=== PATIENT | male | born 1945 | race Caucasian/White ===

== ENCOUNTER 2018-09-20 08:09 | Emergency (ER) | payer MEDICARE ==
--- NOTE | 2018-09-20 08:44 | EDM.PDOC ---
ED HPI GENERAL MEDICAL PROBLEM - General Chief Complaint: General Stated Complaint: RIB PAIN Time Seen by Provider: 09/20/18 08:09 Source of Information: Reports: Patient, Family History Limitations: Reports: Physical Impairment - History of Present Illness INITIAL COMMENTS - FREE TEXT/NARRATIVE: 72 y.o.w.m came with is sister to the ED after he fell on ice onto his right post chest wall. Pt has right sided rip pain with deep inspiration. No N/V/D no dizziness no F/C no other acute medical issues. BP 151/70 RR 20 Pulse ox 92 % on RA Pulse 77 Temp 36.9 Onset Date: 09/20/18 Onset Time: 06:00 Duration: Hour(s):, Intermittent Location: Reports: Chest Quality: Reports: Ache Severity: Mild Improves with: Reports: Rest Worsens with: Reports: Movement Context: Reports: Trauma (fell on right post ribs) Associated Symptoms: Reports: No Other Symptoms L posterior ribs Pain Score (Numeric/FACES): 4 - Related Data Allergies Allergy/AdvReac Type Severity Reaction Status Date / Time No Known Allergies Allergy Verified 09/20/18 08:21 Home Meds: Home Meds Acetaminophen/HYDROcodone [[place] 325-7.5 MG] 1 - 2 tab PO Q6H PRN #16 tab [Rx] Albuterol Sulfate [Albuterol Sulfate Hfa] 2 puff IH Q4H PRN 09/20/18 [History] ED ROS GENERAL - Review of Systems Review Of Systems: See Below Constitutional: Reports: No Symptoms HEENT: Reports: No Symptoms Respiratory: Reports: No Symptoms Cardiovascular: Reports: No Symptoms Endocrine: Reports: No Symptoms GI/Abdominal: Reports: No Symptoms : Reports: No Symptoms Musculoskeletal: Reports: Muscle Pain (right post chest wall) Skin: Reports: No Symptoms Neurological: Reports: No Symptoms Psychiatric: Reports: No Symptoms Hematologic/Lymphatic: Reports: No Symptoms Immunologic: Reports: No Symptoms ED EXAM, GENERAL - Physical Exam Exam: See Below Exam Limited By: No Limitations General Appearance: Alert, WD/WN, Mild Distress Eye Exam: Bilateral Eye: Normal Inspection Ears: Normal External Exam Ear Exam: Bilateral Ear: Auricle Normal Nose: Normal Inspection, Normal Mucosa Throat/Mouth: Normal Lips, Normal Voice, No Airway Compromise Head: Atraumatic, Normocephalic Neck: Normal Inspection, Supple, Non-Tender, Full Range of Motion Respiratory/Chest: Lungs Clear, Normal Breath Sounds, Decreased Breath Sounds ( right lung due to pain) Cardiovascular: Normal Peripheral Pulses, Regular Rate, Rhythm, No Edema Peripheral Pulses: 2+: Brachial (R) GI/Abdominal: Normal Bowel Sounds, Soft, Non-Tender, No Organomegaly, Pelvis Stable (Male) Exam: Deferred Rectal (Males) Exam: Deferred Back Exam: Normal Inspection Extremities: Normal Inspection, Normal Range of Motion Neurological: Alert, Oriented, CN II-XII Intact, Normal Cognition Psychiatric: Normal Affect, Normal Mood Skin Exam: Warm, Dry, Intact, Normal Color, No Rash Lymphatic: No Adenopathy Course - Vital Signs Text/Narrative:: 72 y.o.w.m came with is sister to the ED after he fell on ice onto his right post chest wall. Pt has right sided rip pain with deep inspiration. No N/V/D no dizziness no F/C no other acute medical issues. BP 151/70 RR 20 Pulse ox 92 % on RA Pulse 77 Temp 36.9 PE: Thin 72 Y.O W male with right rip pain after fall on ICE Imaging: CXR and Right rib series: NAD as per RAD, no Fx seen Impression: Right rib sprain, fall on ICE Tx: Toradol, ICE.Noro sent home per prescription Reexam: Improved Plan: D/C with instructions Last Recorded V/S: Last Vital Signs Temp 36.9 C 09/20/18 08:09 Pulse 68 09/20/18 10:05 Resp 18 09/20/18 10:05 BP 139/78 09/20/18 10:05 Pulse Ox 95 09/20/18 10:05 - Orders/Labs/Meds Orders: Active Orders 24 hr Category Date Time Status Chest 2V [CR] Stat Exams 09/20/18 08:42 Taken Ribs 3V wo Chest Rt [CR] Stat Exams 09/20/18 08:42 Taken Meds: Medications Discontinued Medications Generic Name Dose Route Start Last Admin Trade Name Freq PRN Reason Stop Dose Admin Ketorolac Tromethamine 60 mg 09/20/18 08:42 09/20/18 09:20 Toradol IM 09/20/18 08:43 60 mg ONETIME ONE Administration Departure - Departure Time of Disposition: 10:06 Disposition: Home, Self-Care 01 Condition: Good Clinical Impression: Fall Sprain of chest wall Qualifiers: Encounter type: initial encounter Qualified Code(s): S23.8XXA - Sprain of other specified parts of thorax, initial encounter - Discharge Information Prescriptions: Acetaminophen/HYDROcodone [[place] 325-7.5 MG] 1 - 2 tab PO Q6H PRN #16 tab PRN Reason: for severe pain only Instructions: Ketorolac injection, Rib Contusion Referrals: Shiva Rae MD [Primary Care Provider] - Forms: ED Department Discharge Additional Instructions: Please apply ICE to the affected area for 20-30 minutes 4-6 times a day, Motrin/ [place] for pain as needed, please follow up with your regular MD at clinic for recheck as needed or if not improving, come back if your symptoms get worse acutely. - My Orders Last 24 Hours: My Active Orders 09/20/18 08:42 Chest 2V [CR] Stat Ribs 3V wo Chest Rt [CR] Stat - Assessment/Plan Last 24 Hours: My Active Orders 09/20/18 08:42 Chest 2V [CR] Stat Ribs 3V wo Chest Rt [CR] Stat
[2018-09-20] MEDS: Ketorolac 60 MG/2 ML SDV IM ONE (09:20)
== END 2018-09-20 10:30 | disposition home or self-care (01) ==
LOC: FB.ED 08:09
DX: S23.41XA Sprain of ribs, initial encounter (principal); W19.XXXA Unspecified fall, initial encounter; Y93.29 Activity, other involving ice and snow
CPT/HCPCS: 71046; 71101-RT; 96372; 99283; J1885

== ENCOUNTER 2021-01-03 14:17 | Emergency (ER) | payer MEDICARE ==
[2021-01-03] MEDS ORDERED: Ondansetron 4 MG/2 ML SDV IVPUSH ONE (14:48)
--- NOTE | 2021-01-03 14:54 | EDM.PDOC ---
ED HPI GENERAL MEDICAL PROBLEM - General Stated Complaint: ??? Time Seen by Provider: 01/03/21 14:25 Source of Information: Reports: Patient, Family History Limitations: Reports: No Limitations - History of Present Illness INITIAL COMMENTS - FREE TEXT/NARRATIVE: c/o LLQ pain here with his nephew who lives with him LLQ pain x 1w, saw Dr Garcia 3d ago, begun on cipro 500 bid and metronidazole 500 mg tid which he has been taking however, he had n/v 2d ago that has not improved, very little PO, pain now gone in LLQ denies f/c/d h/o diverticulitis x 2, 3y ago with long section of sigmoid diverticulitis with a 2.3 cm probable abscess, BPH, cholelithiasis, ASD however pt denies prior abd surgery, not hospitalized with last 2 episodes of diverticulitis SH: drinks daily, usually 3-4 beers sometimes more, regular THC, 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, 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, here with nephew who spoke with RN and myself then returned home, pt brought a suitcase with him ROS: very weak - Related Data Allergies Allergy/AdvReac Type Severity Reaction Status Date / Time No Known Allergies Allergy Verified 09/20/18 08:21 Home Meds: Home Meds Ciprofloxacin HCl [Cipro] 500 mg PO BID 01/03/21 [History] metroNIDAZOLE [Flagyl] 500 mg PO TID 01/03/21 [History] Past Medical History Respiratory History: Reports: COPD Gastrointestinal History: Reports: None, Diverticulosis Musculoskeletal History: Reports: Fracture Other Musculoskeletal History: hx fx L arm, hand, Psychiatric History: Reports: Addiction - Infectious Disease History Infectious Disease History: Reports: Chicken Pox, Measles, Mumps - Past Surgical History HEENT Surgical History: Reports: Adenoidectomy, Tonsillectomy Musculoskeletal Surgical History: Reports: None Social & Family History - Family History Family Medical History: No Pertinent Family History - Caffeine Use Caffeine Use: Reports: Coffee ED ROS GENERAL - Review of Systems Review Of Systems: See Below Constitutional: Reports: No Symptoms HEENT: Reports: No Symptoms Respiratory: Reports: No Symptoms Cardiovascular: Reports: No Symptoms Endocrine: Reports: No Symptoms GI/Abdominal: Reports: Abdominal Pain, Nausea, Vomiting, Other (last BM several days ago) : Reports: No Symptoms Musculoskeletal: Reports: No Symptoms Skin: Reports: No Symptoms Neurological: Reports: No Symptoms Psychiatric: Reports: No Symptoms Hematologic/Lymphatic: Reports: No Symptoms Immunologic: Reports: No Symptoms ED EXAM, GI/ABD - Physical Exam Exam: See Below Exam Limited By: No Limitations General Appearance: Alert, WD/WN, Other (pleasant, weak, no tremor, lying supine on bed) Ears: Hearing Grossly Normal Nose: Normal Inspection Throat/Mouth: Normal Inspection, Normal Voice, No Airway Compromise Head: Atraumatic Neck: Normal Inspection, Supple, Non-Tender, Full Range of Motion. No: Lymphadenopathy (R) Respiratory/Chest: No Respiratory Distress, Lungs Clear, Normal Breath Sounds, Chest Non-Tender Cardiovascular: Regular Rate, Rhythm, No Edema, No Gallop, No Murmur GI/Abdominal Exam: Normal Bowel Sounds, Soft, No Distention, Other (1-2+ tender localized 10 cm above inguinal ligament in mid iguinal line in LLQ). No: Distended, Guarding, Rigid, Rebound, Hernia Back Exam: Normal Inspection, Full Range of Motion. No: CVA Tenderness (R), CVA Tenderness (L) Extremities: Normal Inspection, Non-Tender, No Pedal Edema Neurological: Alert, Oriented, CN II-XII Intact, Normal Cognition, No Motor/Sensory Deficits Psychiatric: Normal Affect Skin Exam: Warm, Dry, Intact, Normal Color, No Rash Lymphatic: No Adenopathy Course - Vital Signs Last Recorded V/S: Last Vital Signs Temp 36.4 C 01/03/21 14:26 Pulse 79 01/03/21 16:31 Resp 20 01/03/21 16:31 BP 168/69 H 01/03/21 16:31 Pulse Ox 97 01/03/21 16:31 - Orders/Labs/Meds Orders: Active Orders 24 hr Category Date Time Status Abdomen Pelvis w Cont [CT] Stat Exams 01/03/21 14:46 Ordered CULTURE BLOOD [BC] Urgent Lab 01/03/21 16:59 Ordered CULTURE BLOOD [BC] Urgent Lab 01/03/21 16:59 Ordered Piperacillin/Tazobactam [Zosyn] 3.375 gm Med 01/03/21 17:00 Ordered Sodium Chloride 0.9% [Normal Saline] 50 ml IV NOW Sodium Chloride 0.9% [Normal Saline] 1,000 ml Med 01/03/21 15:00 Active IV ASDIRECTED Blood Culture x2 Reflex Set [OM.PC] Urgent Oth 01/03/21 16:59 Ordered Medication Orders Sodium Chloride (Normal Saline) 1,000 mls @ 999 mls/hr IV ASDIRECTED TOÑO Last Admin: 01/03/21 15:20 Dose: 999 mls/hr Documented by: CHANTEL Piperacillin Sod/Tazobactam (Sod 3.375 gm/ Sodium Chloride) 50 mls @ 100 mls/hr IV NOW ONE Stop: 01/03/21 17:29 Labs: Laboratory Tests 01/03/21 01/03/21 01/03/21 Range/Units 14:55 14:55 14:55 WBC 10.8 H (3.2-10.1) x10-3/uL RBC 5.62 (3.90-5.90) x10(6)uL Hgb 17.6 (12.9-17.7) g/dL Hct 52.8 H (38.3-50.1) % MCV 94.1 (80.8-98.7) fL MCH 31.4 (27.0-33.3) pg MCHC 33.4 (28.7-35.3) g/dL RDW 14.9 (12.4-15.0) % Plt Count 265 (117-477) x10(3)uL MPV 8.6 (6.7-11.0) fL Neut % (Auto) 76.9 H (40.3-71.8) % Lymph % (Auto) 13.7 L (15.8-45.3) % [place] % (Auto) 7.9 (5.5-15.2) % Eos % (Auto) 0.7 (0.1-6.8) % Baso % (Auto) 0.8 (0.3-3.8) % Neut # (Auto) 8.3 H (1.7-6.9) x10-3/uL Lymph # (Auto) 1.5 (0.5-4.5) x10-3/uL [place] # (Auto) 0.9 (0.0-1.2) x10-3/uL Eos # (Auto) 0.1 (0.0-0.6) x10-3/uL Baso # (Auto) 0.1 (0.0-0.3) x10-3/uL Sodium 141 (135-145) mmol/L Potassium 3.3 L (3.5-5.3) mmol/L Chloride 103 (100-110) mmol/L Carbon Dioxide 31 (21-32) mmol/L BUN 14 (7-18) mg/dL Creatinine 1.1 (0.70-1.30) mg/dL Est Cr Clr Drug Dosing TNP Estimated GFR (MDRD) > 60 (>60) BUN/Creatinine Ratio 12.7 (9-20) Glucose 198 H (80-116) mg/dL Lactic Acid (0.4-2.0) mmol/L Calcium 8.6 (8.6-10.2) mg/dL Total Bilirubin 0.3 (0.1-1.3) mg/dL AST 13 (5-25) IU/L ALT 16 (12-36) U/L Alkaline Phosphatase 125 H (56-112) IU/L C-Reactive Protein 4.1 H* (0.5-0.9) mg/dL Total Protein 6.9 (6.0-8.0) g/dL Albumin 3.1 L (3.2-4.6) g/dL Globulin 3.8 g/dL Albumin/Globulin Ratio 0.8 Urine Color (YELLOW) Urine Appearance (CLEAR) Urine pH (5.0-6.5) Ur Specific [place] (1.010-1.025) Urine Protein (NEGATIVE) mg/dL Urine Glucose (UA) (NORMAL) mg/dL Urine Ketones (NEGATIVE) mg/dL Urine Occult Blood (NEGATIVE) Urine Nitrite (NEGATIVE) Urine Bilirubin (NEGATIVE) Urine Urobilinogen (NEGATIVE) mg/dL Ur Leukocyte Esterase (NEGATIVE) U Hyaline Cast (Auto) (NS) Urine RBC (0-5) Urine WBC (0-5) Ur Squamous Epith Cells (NS,R,O) Urine Bacteria (NS) Urine Mucus (NS) 01/03/21 01/03/21 Range/Units 14:55 16:00 WBC (3.2-10.1) x10-3/uL RBC (3.90-5.90) x10(6)uL Hgb (12.9-17.7) g/dL Hct (38.3-50.1) % MCV (80.8-98.7) fL MCH (27.0-33.3) pg MCHC (28.7-35.3) g/dL RDW (12.4-15.0) % Plt Count (117-477) x10(3)uL MPV (6.7-11.0) fL Neut % (Auto) (40.3-71.8) % Lymph % (Auto) (15.8-45.3) % [place] % (Auto) (5.5-15.2) % Eos % (Auto) (0.1-6.8) % Baso % (Auto) (0.3-3.8) % Neut # (Auto) (1.7-6.9) x10-3/uL Lymph # (Auto) (0.5-4.5) x10-3/uL [place] # (Auto) (0.0-1.2) x10-3/uL Eos # (Auto) (0.0-0.6) x10-3/uL Baso # (Auto) (0.0-0.3) x10-3/uL Sodium (135-145) mmol/L Potassium (3.5-5.3) mmol/L Chloride (100-110) mmol/L Carbon Dioxide (21-32) mmol/L BUN (7-18) mg/dL Creatinine (0.70-1.30) mg/dL Est Cr Clr Drug Dosing Estimated GFR (MDRD) (>60) BUN/Creatinine Ratio (9-20) Glucose (80-116) mg/dL Lactic Acid 2.1 H* (0.4-2.0) mmol/L Calcium (8.6-10.2) mg/dL Total Bilirubin (0.1-1.3) mg/dL AST (5-25) IU/L ALT (12-36) U/L Alkaline Phosphatase (56-112) IU/L C-Reactive Protein (0.5-0.9) mg/dL Total Protein (6.0-8.0) g/dL Albumin (3.2-4.6) g/dL Globulin g/dL Albumin/Globulin Ratio Urine Color Brown (YELLOW) Urine Appearance Slightly cloudy (CLEAR) Urine pH 6.0 (5.0-6.5) Ur Specific [place] 1.020 (1.010-1.025) Urine Protein Trace (NEGATIVE) mg/dL Urine Glucose (UA) Normal (NORMAL) mg/dL Urine Ketones 15 H (NEGATIVE) mg/dL Urine Occult Blood Negative (NEGATIVE) Urine Nitrite Negative (NEGATIVE) Urine Bilirubin Negative (NEGATIVE) Urine Urobilinogen 4 H (NEGATIVE) mg/dL Ur Leukocyte Esterase Small H (NEGATIVE) U Hyaline Cast (Auto) Few H (NS) Urine RBC 0-5 (0-5) Urine WBC 0-5 (0-5) Ur Squamous Epith Cells Few H (NS,R,O) Urine Bacteria Few H (NS) Urine Mucus Few H (NS) Meds: Medications Generic Name Dose Route Start Last Admin Trade Name Freq PRN Reason Stop Dose Admin Sodium Chloride 1,000 mls @ 999 mls/hr 01/03/21 15:00 01/03/21 15:20 Normal Saline IV 999 mls/hr ASDIRECTED TOÑO Administration Piperacillin Sod/Tazobactam 50 mls @ 100 mls/hr 01/03/21 17:00 Sod 3.375 gm/ Sodium Chloride IV 01/03/21 17:29 NOW ONE Discontinued Medications Generic Name Dose Route Start Last Admin Trade Name Freq PRN Reason Stop Dose Admin Iopamidol 66 ml 01/03/21 15:32 01/03/21 15:48 Iopamidol 755 Mg/Ml 75 Ml Bottle IV 01/03/21 15:33 66 ml ONETIME ONE Administration Ondansetron HCl 4 mg 01/03/21 14:48 01/03/21 15:18 Ondansetron 4 Mg/2 Ml Sdv IVPUSH 01/03/21 14:49 4 mg ONETIME ONE Administration - Re-Assessments/Exams Free Text/Narrative Re-Assessment/Exam: 01/03/21 17:04 d/w Dr Caraballo, [facility] hospitalist, who accepted pt in transfer pt has a 2.6 cm abscess with adjacent 10 cm of inflamed sigmoid colon c/w d iverticulitis 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 to 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, pt will need surgical consult and possible surgery for recurrent diverticulitis and abscess in presumably the same stretch of sigmo id colon as he had 3y ago Departure - Departure Time of Disposition: 17:04 Disposition: DC/Tfer to Acute Hospital 02 Condition: Fair Clinical Impression: Diverticulitis of intestine with abscess, Hypoalbuminemia, Dehydration, Daily consumption of alcohol, Hyperglycemia, Hypokalemia - Discharge Information Sepsis Event Note (ED) - Focused Exam Vital Signs: Vital Signs Temp Pulse Resp BP Pulse Ox 01/03/21 16:31 79 20 168/69 H 97 01/03/21 16:01 74 20 182/87 H 94 L 01/03/21 15:56 78 20 196/91 H 97 01/03/21 14:26 36.4 C 95 18 145/106 H 95 - My Orders Last 24 Hours: My Active Orders 01/03/21 14:46 Abdomen Pelvis w Cont [CT] Stat 01/03/21 15:00 Sodium Chloride 0.9% [Normal Saline] 1,000 ml IV ASDIRECTED 01/03/21 16:59 CULTURE BLOOD [BC] Urgent CULTURE BLOOD [BC] Urgent Blood Culture x2 Reflex Set [OM.PC] Urgent 01/03/21 17:00 Piperacillin/Tazobactam [Zosyn] 3.375 gm Sodium Chloride 0.9% [Normal Saline] 50 ml IV NOW - Assessment/Plan Last 24 Hours: My Active Orders 01/03/21 14:46 Abdomen Pelvis w Cont [CT] Stat 01/03/21 15:00 Sodium Chloride 0.9% [Normal Saline] 1,000 ml IV ASDIRECTED 01/03/21 16:59 CULTURE BLOOD [BC] Urgent CULTURE BLOOD [BC] Urgent Blood Culture x2 Reflex Set [OM.PC] Urgent 01/03/21 17:00 Piperacillin/Tazobactam [Zosyn] 3.375 gm Sodium Chloride 0.9% [Normal Saline] 50 ml IV NOW
[2021-01-03] MEDS ORDERED: Sodium Chloride 0.9% 1,000 ML IV SCH (15:00)
[2021-01-03] MEDS ORDERED: Iopamidol 755 Mg/ML 75 ML Bottle IV ONE (15:32)
[2021-01-03] MEDS ORDERED: Piperacillin/Tazobactam 3.375 GM in Sodium Chloride 0.9% 50 ML IV ONE (17:00)
[2021-01-03] MEDS ORDERED: Potassium Chloride 20 MEQ Tab.ER PO ONE (17:03)
== END 2021-01-03 18:41 ==
LOC: FB.ED 14:17
DX: K57.20 Diverticulitis of large intestine with perforation and abscess without bleeding (principal); E86.0 Dehydration; E88.09 Other disorders of plasma-protein metabolism, not elsewhere classified; E87.6 Hypokalemia; R73.9 Hyperglycemia, unspecified; J44.9 Chronic obstructive pulmonary disease, unspecified
CPT/HCPCS: 36415; 74177; 80053; 81001; 83605; 85025; 86140; 87040; 96374; 96375; 99285-25; A9270-GY; J2405; J2543; J7030; Q9967

== ENCOUNTER 2021-01-13 16:21 | Emergency (ER) | payer MEDICARE ==
[2021-01-13] MEDS: Meclizine 25 MG Tab PO ONE (16:43)
--- NOTE | 2021-01-13 18:38 | EDM.PDOC ---
ED HPI GENERAL MEDICAL PROBLEM - General Chief Complaint: General Stated Complaint: Vertigo Time Seen by Provider: 01/13/21 16:30 Source of Information: Reports: Patient History Limitations: Reports: No Limitations - History of Present Illness INITIAL COMMENTS - FREE TEXT/NARRATIVE: Patient presented to the ED because of vertigo for 2 weeks. He described it as floating sensation with associated tinnitus, double vision, bilateral UE and LE weakness and at times he lost his balance. He also c/o perioral numbness and according to his sister there was a time when he had the vertigo and his sister was talking to him and he is not able to respond for 15 minutes. - Related Data Allergies Allergy/AdvReac Type Severity Reaction Status Date / Time No Known Allergies Allergy Verified 09/20/18 08:21 Home Meds: Home Meds Ciprofloxacin HCl [Cipro] 500 mg PO BID 01/03/21 [History] metroNIDAZOLE [Flagyl] 500 mg PO TID 01/03/21 [History] Meclizine [Antivert] 25 mg PO Q6H PRN #30 tab 01/13/21 [Rx] Past Medical History Respiratory History: Reports: COPD Gastrointestinal History: Reports: Diverticulosis Musculoskeletal History: Reports: Fracture Other Musculoskeletal History: hx fx L arm, hand, Psychiatric History: Reports: Addiction - Infectious Disease History Infectious Disease History: Reports: Chicken Pox, Measles, Mumps - Past Surgical History HEENT Surgical History: Reports: Adenoidectomy, Tonsillectomy Musculoskeletal Surgical History: Reports: None Social & Family History - Family History Family Medical History: No Pertinent Family History - Tobacco Use Tobacco Use Status *Q: Current Every Day Tobacco User Years of Tobacco use: 50 Packs/Tins Daily: 0.1 - Caffeine Use Caffeine Use: Reports: Coffee - Recreational Drug Use Recreational Drug Use: Yes Recreational Drug Type: Reports: Marijuana/Hashish Recreational Drug Use Frequency: Weekly ED ROS GENERAL - Review of Systems Review Of Systems: See Below Constitutional: Reports: No Symptoms HEENT: Reports: No Symptoms Respiratory: Reports: No Symptoms Cardiovascular: Reports: No Symptoms Endocrine: Reports: No Symptoms GI/Abdominal: Reports: No Symptoms : Reports: No Symptoms Musculoskeletal: Reports: Shoulder Pain, Back Pain Skin: Reports: No Symptoms Neurological: Reports: No Symptoms ED EXAM, GENERAL - Physical Exam Exam: See Below Exam Limited By: No Limitations General Appearance: Alert, No Apparent Distress Ears: Normal External Exam, Normal [place] Nose: Normal Inspection, Normal Mucosa, No Blood Throat/Mouth: Normal Inspection, Normal Lips, Normal Teeth Head: Atraumatic, Normocephalic Neck: Normal Inspection, Supple, Non-Tender, Full Range of Motion Respiratory/Chest: No Respiratory Distress, Lungs Clear, Normal Breath Sounds Cardiovascular: Normal Peripheral Pulses, Regular Rate, Rhythm, No Edema, No Gallop GI/Abdominal: Normal Bowel Sounds, Soft, Non-Tender, No Organomegaly Extremities: Normal Inspection, Normal Range of Motion, Non-Tender Neurological: Alert, Oriented, CN II-XII Intact, Normal Cognition, Normal Gait, Normal Reflexes, No Motor/Sensory Deficits Course - Vital Signs Text/Narrative:: Lab/CT result was reviewed and discussed with patient and his sister Meclizine 25 mg PO x1 Neurostroke consult with Dr Dc who recommended MRI of the prain and EEG as an outpatient and will follow up with neurology accordingly NIHSS=0 Last Recorded V/S: Last Vital Signs Temp 35.9 C L 01/13/21 16:23 Pulse 89 01/13/21 19:30 Resp 18 01/13/21 19:30 BP 137/74 01/13/21 19:30 Pulse Ox 94 L 01/13/21 19:30 - Orders/Labs/Meds Orders: Active Orders 24 hr Category Date Time Status Chest 1V Frontal [CR] Stat Exams 01/13/21 17:04 Taken EKG 12 Lead [EK] Routine Ther 01/13/21 16:37 Ordered Labs: Laboratory Tests 01/13/21 01/13/21 01/13/21 Range/Units 16:44 16:44 16:44 WBC 11.2 H (3.2-10.1) x10-3/uL RBC 5.36 (3.90-5.90) x10(6)uL Hgb 16.6 (12.9-17.7) g/dL Hct 50.5 H (38.3-50.1) % MCV 94.2 (80.8-98.7) fL MCH 30.9 (27.0-33.3) pg MCHC 32.8 (28.7-35.3) g/dL RDW 15.1 H (12.4-15.0) % Plt Count 292 (117-477) x10(3)uL MPV 7.7 (6.7-11.0) fL Neut % (Auto) 63.6 (40.3-71.8) % Lymph % (Auto) 25.6 (15.8-45.3) % [place] % (Auto) 7.5 (5.5-15.2) % Eos % (Auto) 2.2 (0.1-6.8) % Baso % (Auto) 1.1 (0.3-3.8) % Neut # (Auto) 7.1 H (1.7-6.9) x10-3/uL Lymph # (Auto) 2.9 (0.5-4.5) x10-3/uL [place] # (Auto) 0.8 (0.0-1.2) x10-3/uL Eos # (Auto) 0.2 (0.0-0.6) x10-3/uL Baso # (Auto) 0.1 (0.0-0.3) x10-3/uL PT 10.0 (9.0-11.1) sec INR 0.93 L (1.00-1.24) APTT 25.8 (24.4-33.2) SECONDS Sodium Cancelled Potassium Cancelled Chloride Cancelled Carbon Dioxide Cancelled Anion Gap Cancelled BUN Cancelled Creatinine Cancelled Est Cr Clr Drug Dosing Cancelled Estimated GFR (MDRD) Cancelled BUN/Creatinine Ratio Cancelled Glucose Cancelled Calcium Cancelled Total Bilirubin (0.1-1.3) mg/dL AST (5-25) IU/L ALT (12-36) U/L Alkaline Phosphatase (56-112) IU/L Troponin I (4.0-60.3) pg/mL Total Protein (6.0-8.0) g/dL Albumin (3.2-4.6) g/dL Globulin g/dL Albumin/Globulin Ratio 01/13/21 01/13/21 Range/Units 16:44 16:44 WBC (3.2-10.1) x10-3/uL RBC (3.90-5.90) x10(6)uL Hgb (12.9-17.7) g/dL Hct (38.3-50.1) % MCV (80.8-98.7) fL MCH (27.0-33.3) pg MCHC (28.7-35.3) g/dL RDW (12.4-15.0) % Plt Count (117-477) x10(3)uL MPV (6.7-11.0) fL Neut % (Auto) (40.3-71.8) % Lymph % (Auto) (15.8-45.3) % [place] % (Auto) (5.5-15.2) % Eos % (Auto) (0.1-6.8) % Baso % (Auto) (0.3-3.8) % Neut # (Auto) (1.7-6.9) x10-3/uL Lymph # (Auto) (0.5-4.5) x10-3/uL [place] # (Auto) (0.0-1.2) x10-3/uL Eos # (Auto) (0.0-0.6) x10-3/uL Baso # (Auto) (0.0-0.3) x10-3/uL PT (9.0-11.1) sec INR (1.00-1.24) APTT (24.4-33.2) SECONDS Sodium 142 Potassium 4.4 D Chloride 105 Carbon Dioxide 31 Anion Gap BUN 18 Creatinine 1.2 Est Cr Clr Drug Dosing 42.21 Estimated GFR (MDRD) 59 L BUN/Creatinine Ratio 15.0 Glucose 98 D Calcium 8.3 L Total Bilirubin 0.3 (0.1-1.3) mg/dL AST 17 D (5-25) IU/L ALT 21 D (12-36) U/L Alkaline Phosphatase 118 H (56-112) IU/L Troponin I 12.2 (4.0-60.3) pg/mL Total Protein 7.1 (6.0-8.0) g/dL Albumin 3.4 (3.2-4.6) g/dL Globulin 3.7 g/dL Albumin/Globulin Ratio 0.9 Meds: Medications Discontinued Medications Generic Name Dose Route Start Last Admin Trade Name Freq PRN Reason Stop Dose Admin Meclizine HCl 25 mg 01/13/21 16:36 01/13/21 16:43 Meclizine 25 Mg Tab PO 01/13/21 16:37 25 mg ONETIME ONE Administration Departure - Departure Time of Disposition: 18:45 Disposition: Home, Self-Care 01 Condition: Good Clinical Impression: Vertigo - Discharge Information Prescriptions: Meclizine [Antivert] 25 mg PO Q6H PRN #30 tab PRN Reason: vertigo Instructions: Vertigo, [id number] Referrals: Shiva Rae MD [Primary Care Provider] - Forms: ED Department Discharge Additional Instructions: Please read discharge instructions on Vertigo Meclizine 25 mg every 6 hours as needed for vertigo 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
--- NOTE | 2021-01-13 18:42 | CT ---
INDICATION: Vertigo, weakness, aphasia. TECHNIQUE: Spiral 3.75 mm axial sections were obtained through the brain without contrast with axial, sagittal and coronal reconstructions 01/13/2021 - no comparisons. TOTAL EXAM DLP: 1223.52 mGy/cm. No shift in midline structures or ventricular abnormalities were identified. A small low density abnormality is noted in the medial right basal ganglia, which may represent a small lacunar infarct. There is also suggestion of one small low density abnormality in the white matter along the superior aspect of the parietal lobe white matter on the right which may be on the basis of microvascular disease, although other etiology cannot be excluded. No cranial abnormality was identified. The paranasal sinuses and mastoid air cells appear to be fairly well aerated. There appears to be some mild asymmetry of the internal auditory canals most likely within normal limits. However, if symptoms are related to the right internal auditory canal which is very slightly more prominent than the left, further workup such as MRI may be warranted. The pollack/white matter interface appeared normal. IMPRESSION: 1. No definite acute intracranial abnormality. 2. Possible lacunar infarct of small size right basal ganglia. 3. Minimal white matter changes, which could be on the basis of microvascular disease. 4. Very minimal asymmetry in the internal auditory canals - right slightly more prominent than the left - correlate clinically as to the need for additional workup such as MRI. Report was called to Dr. Dee at 1807 hours 01/13/2021. [facility]OSPITALHellen
--- NOTE | 2021-01-14 09:44 | PCM.EKG ---
#1 Interpretation EKG Date: 01/13/21 Time: 16:28 Rhythm: Other (Sinus arrhythmia) Rate (Beats/Min): 76 Mckinney: Normal P-Wave: Present QRS: Normal ST-T: Normal QT: Normal Comparison: NA - No Prior EKG EKG Interpretation Comments: Sinus arrythmia PVC's LVH
--- NOTE | 2021-01-14 10:44 | CR ---
INDICATION: Vertigo, weakness, aphasia. CHEST ONE VIEW: An AP upright portable view of the chest 01/13/21 was compared with 09/20/18 and again revealed calcification in the arch of the aorta. The heart is normal in size and shape as previously. A moderate dextroconvex scoliosis at the upper middle thoracic spine is again noted. Pulmonary markings are similar to the previous study, without a definite active infiltrate or effusion. There is apparent resolution of a tiny right pleural effusion seen on the previous study. Healed rib fracture is noted on the right posterolaterally at the eighth right rib with suggestion of a ninth rib fracture site that is also healed but less obvious. A more obvious healed fracture site is more posteriorly located at the tenth right rib. These fractures were apparently present on the previous rib x- rays of 09/20/18. IMPRESSION: 1. ASD. 2. Scoliosis. 3. Healed rib fractures on the right posteriorly. MTDD
== END 2021-01-13 19:35 | disposition home or self-care (01) ==
LOC: FB.ED 16:21
DX: R42 Dizziness and giddiness (principal); J44.9 Chronic obstructive pulmonary disease, unspecified; Z72.0 Tobacco use
CPT/HCPCS: 36415; 70450; 71045; 80053; 84484; 85025; 85610; 85730; 93005; 99284; A9270

== ENCOUNTER 2021-04-08 13:54 | Inpatient (IN) | payer MEDICARE ==
[2021-04-08] MEDS ORDERED: Albuterol/Ipratropium 3.0-0.5 MG/3 ML Neb Soln INH PRN (14:31)
[2021-04-08] MEDS ORDERED: metroNIDAZOLE/Normal Saline 500 MG in Premix Bag 1 BAG IV SCH (15:00)
[2021-04-08] MEDS: Sodium Chloride 0.9% 1,000 ML IV SCH (15:22)
[2021-04-08] MEDS: Sodium Chloride 0.9% 10 ML Syringe FLUSH PRN (15:23)
[2021-04-08] MEDS ORDERED: Iopamidol 755 Mg/ML 75 ML Bottle IV ONE (16:18)
[2021-04-08] MEDS ORDERED: Diatrizoate Meglumine/Diatrizoate Sodium 37% 30 ML Bottle PO ONE (16:18)
[2021-04-08] MEDS: Ciprofloxacin in D5W 400 MG in Premix Bag 1 BAG IV SCH ×4 (16:31→23:48)
[2021-04-08] MEDS: Enoxaparin 30 MG/0.3 ML Syringe SUBCUT SCH (16:34)
[2021-04-08] MEDS: metroNIDAZOLE/Normal Saline 500 MG in Premix Bag 1 BAG IV SCH (17:56)
[2021-04-08] MEDS: Ticagrelor 90 MG Tab PO SCH (22:06)
[2021-04-08] MEDS ORDERED: Melatonin 3 MG Tab PO PRN (22:08)
[2021-04-09] MEDS: metroNIDAZOLE/Normal Saline 500 MG in Premix Bag 1 BAG IV SCH ×3 (00:57→17:07)
[2021-04-09] MEDS: Morphine 2 MG/ML SYRINGE IVPUSH PRN ×2 (00:58→04:40)
[2021-04-09] MEDS: Sodium Chloride 0.9% 1,000 ML IV SCH ×3 (04:14→23:55)
[2021-04-09] MEDS: Ciprofloxacin in D5W 400 MG in Premix Bag 1 BAG IV SCH ×2 (08:51)
[2021-04-09] MEDS: Ticagrelor 90 MG Tab PO SCH ×2 (09:03→20:49)
[2021-04-09] MEDS: Citalopram 20 MG Tab PO SCH (09:03)
[2021-04-09] MEDS: Sodium Chloride 0.9% 10 ML Syringe FLUSH PRN ×2 (10:00→20:38)
[2021-04-09] MEDS: HYDROmorphone 2 MG/ML SDV IVPUSH PRN ×2 (10:04→20:37)
--- NOTE | 2021-04-09 14:30 | HP ---
ADMISSION DATE: 04/08/2021 REASON FOR VISIT: Acute abdominal pain, suspect diverticulitis. HISTORY OF PRESENT ILLNESS: Flip Hirsch is a 75-year-old male, admitted after being seen by Dr. Rae at [facility]. Presented with 3-day history of increasing left lower abdominal pain. Denies fever, chills, sweats, or systemic complaints. Sense of reduced well-being, reluctant stools, and increasing pain. By report, did have a colonoscopy in March 2021, was hospitalized in December 2020 with same acute diverticulitis. Pain, discomfort, and well being. Dictated intervention and care. Suspect diverticulitis. MEDICATIONS: Daily medications include: 1. Albuterol 1-2 puffs q.i.d. p.r.n. 2. Baby aspirin 81 mg. 3. Atorvastatin 80 mg 1 p.o. daily, CAD prevention. 4. Melatonin 10 mg at bedtime, sleep enhancement. 5. Senokot 1 p.o. at bedtime, stool function. 6. Citalopram 20 mg 1 p.o. daily, mood stabilizer. 7. Brilinta 90 mg b.i.d., stroke prevention. PAST MEDICAL HISTORY: Significant for no major operative procedure other than a stent "put in arteries brain." Had a CVA, TIA with balance and speech impairment. He has had a fractured left humerus in his grade school. No other operative procedures, hospitalizations, unusual childhood diseases, major injuries, or fractures. SOCIAL HISTORY: , 1 son, 2 daughters. One grandchild. 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 One plus pack per day, quit December 2020. History of alcohol abuse, none at present. No illicit drug use. FAMILY HISTORY: Negative for early heart disease, diabetes mellitus, or inheritable cancer. REVIEW OF SYSTEMS: CONSTITUTIONAL: Generally feeling well. EYES: Sees well. EARS: Hears well, difficulty in crowds. OROPHARYNX: Poor dentition. CV: No chest pain. RESPIRATORY: Chronic cough, shortness of breath, exertion. GI: Please see HPI. : Voiding comfortably. No blood in urine. SKIN: No lesions, eruptions, or moles. ENDOCRINE: No excessive thirst or urination. ORTHOPEDIC: Generalized complaints, mood stable on citalopram. PHYSICAL EXAMINATION: VITAL SIGNS: Stable. CONSTITUTIONAL: Young man, cooperative, conversant, appears his stated age. Markedly bearded. HEENT: Funduscopic benign. Conjunctivae clear. Bright tympanic membranes. Clear nasal discharge. Mouth and oropharynx clear. NECK: Benign. Thyroid small. CHEST: On auscultation, clear lung. Decreased breath sounds. HEART: Distant heart sounds. ABDOMEN: Problematic. Acutely tender over the distal, descending, and proximal sigmoid colon with rebound. Good bowel sounds. : Normal male genitalia. Testes descended. Hernias absent. RECTAL: Declined and deferred. EXTREMITIES: Well perfused. NEUROMUSCULAR: Skin was intact. LABORATORY STUDIES: White count 10,900, hemoglobin 9.5, hematocrit 28.9. Electrolytes pending. CT scan performed revealed acute diverticular mass, abscess formation, now 4.4 x 2.3 cm, had been 3 x 1.9 in December 2020. No other pathology. ASSESSMENT: Acute diverticulitis. PLAN: IV metronidazole, IV ciprofloxacin. Complementary care and well being. Bowel rest. We will continue citalopram and Brilinta. Consultation will be obtained, Dr. Pablo for completeness of care. /[id number] VINICIO/CARLEE
--- NOTE | 2021-04-09 14:30 | PN ---
DATE SEEN: 04/09/2021 SUBJECTIVE: Flip Hirsch is a 75-year-old male admitted with left lower quadrant pain, strong suspicion for diverticulitis, and an evolving abscess change from December 2020. Had a pretty good night. Pain not controlled with morphine. Little in the way of appetite, ice chips on board. Laboratory studies noted. OBJECTIVE: HEENT: Unremarkable. NECK: Supple. Thyroid small. CHEST: Clear in all lung lee. HEART: No ectopy. ABDOMEN: Unchanged. Little tender in left lower quadrant. ASSESSMENT: Acute diverticulitis. PLAN: Continue IV ciprofloxacin, IV metronidazole. Complementary care and well being. Consult Dr. Shashi Pablo plan. Change medications accordingly. /[id number] VINICIO/CARLEE
[2021-04-09] MEDS ORDERED: Nicotine 14 MG/24 Hr Patch TRDERM SCH (15:30)
[2021-04-09] MEDS: Enoxaparin 30 MG/0.3 ML Syringe SUBCUT SCH (17:05)
[2021-04-09] MEDS: Ciprofloxacin in D5W 200 ML IV SCH (20:55)
[2021-04-10] MEDS: metroNIDAZOLE/Normal Saline 500 MG in Premix Bag 1 BAG IV SCH ×2 (00:51→09:36)
[2021-04-10] MEDS: HYDROmorphone 2 MG/ML SDV IVPUSH PRN ×2 (05:16→10:18)
[2021-04-10] MEDS: Sodium Chloride 0.9% 10 ML Syringe FLUSH PRN (05:21)
[2021-04-10] MEDS: Ciprofloxacin in D5W 200 ML IV SCH (08:47)
[2021-04-10] MEDS: Ticagrelor 90 MG Tab PO SCH (08:50)
[2021-04-10] MEDS: Citalopram 20 MG Tab PO SCH (08:50)
[2021-04-10] MEDS: Sodium Chloride 0.9% 1,000 ML IV SCH (09:36)
--- NOTE | 2021-04-10 12:29 | PCM.DCSUM1 ---
Discharge Summary - Hospital Course HPI Initial Comments: Presented from clinic with 3 day history of Left lower quadrant pain, increasing pain, suspected diverticulitis. No fevers, chills, night sweats. No respiratory symptoms. He had been transferred from ER to [facility] in December 2020 for diverticulitis with 3.0 x 1.9 cm abscess for surgical consult. Patient reports that no drainage was done when he was up there. He had colonoscopy with Dr Stephens in March 2021: showed duodenitis, multiple benign polyps. Repeat CT 04/08 showed abscess increased in size to 4.0 x 2.3 cm, moderate edema/wall inflammation in area of abscess which was unchanged from December 2020 CT. Diagnosis: Stroke: No - Discharge Data Discharge Date: 04/10/21 Discharge Disposition: DC/Tfer to Acute Hospital 02 Condition: Stable - Referral to Home Health Primary Care Physician: Shiva Rae MD - Discharge Diagnosis/Problem(s) (1) Diverticulitis of intestine with abscess SNOMED Code(s): 794816826, [id number] ICD Code: K57.80 - DVTRCLI OF INTEST, PART UNSP, W PERF AND ABSCESS W/O BLEED Status: Acute Qualifiers: Diverticulitis site: large intestine - Patient Summary/Data Consults: Consultations 04/09/21 09:16 Consult to Physician [CONS] Routine Consulting Provider: Charles Pablo Courtesy Call Completed to Consulting Physician: Yes Reason for Consult: asif pain and diverticular mass abscess Person Notified: lenny Date Notified: 04/09/21 Time Notified: 08:30 Hospital Course: CBC 10.9, Hgb 9.5, Electrolytes were unremarkable except total protein low at 5.8, Albumin 2.4. Lactic acid 0.5. CT abdomen/pelvis showed persistent vs recurrent sigmoid colon abscess measuring 4.0 cm x 2.3 cm, increased from 12/2020 CT with adjacent moderate wall edema/inflammation which was unchanged from 12/2020. He was started on Flagyl and Ciprofloxacin on admission, NS at 125 ml/hr. Dr Pablo was consulted on 04/09 and not able to drain abscess here given location. Dr Juarez attempted transfer 04/09 but no bed availability, called today and spoke with Dr Vargas surgery research professional, he accepted patient in transfer and will be consulting IR if able to do image guided percutaneous drainage. He required 2 doses of Morphine 2 mg and 4 doses of Dilaudid 2 mg to control his pain. Will go by ground ambulance to [facility] for higher level of care and drainage of abscess. - Patient Instructions Diet: NPO Activity: As Tolerated Other/Special Instructions: Transfer to [facility] for Interventional radiology/surgrical drainage of abscess. - Discharge Plan *PRESCRIPTION DRUG MONITORING PROGRAM REVIEWED*: Not Applicable *COPY OF PRESCRIPTION DRUG MONITORING REPORT IN PATIENT MARGO: Not Applicable Home Medications: Home Meds Albuterol [Ventolin HFA] 1 - 2 puff IH Q4H PRN 04/08/21 [History] Aspirin [Halfprin] 81 mg PO DAILY 04/08/21 [History] Citalopram [Citalopram HBr] 20 mg PO DAILY 04/08/21 [History] Melatonin 10 mg PO BEDTIME 04/08/21 [History] Sennosides [Senokotxtra] 17.2 mg PO BEDTIME 04/08/21 [History] Ticagrelor [Brilinta] 90 mg PO BID 04/08/21 [History] atorvaSTATin [Lipitor] 80 mg PO DAILY 04/08/21 [History] ondansetron HCL [Zofran] 4 mg PO QID PRN 04/08/21 [History] Albuterol/Ipratropium [DuoNeb 3.0-0.5 MG/3 ML] 3 ml INH Q4H PRN neb 04/10/21 [Rx] Ciprofloxacin in D5W [Ciprofloxacin-D5W] 200 ml IV Q12H bag 04/10/21 [Rx] Enoxaparin [Lovenox] 30 mg SUBCUT Q24H syringe 04/10/21 [Rx] HYDROmorphone [Dilaudid] 2 mg IVPUSH Q2H PRN sdv 04/10/21 [Rx] Sodium Chloride 0.9% [Saline Flush] 10 ml FLUSH ASDIRECTED PRN syringe 04/10/21 [Rx] metroNIDAZOLE/Normal Saline [Flagyl in NS 500 MG/100 ML] 500 mg IV Q8H bag 04/10/21 [Rx] Oxygen Therapy Mode: Room Air Patient Handouts: Diverticulitis, [id number] - Discharge Summary/Plan Comment DC Time >30 min.: No Total # of Minutes for Discharge Time: 15 min - General Info Date of Service: 04/10/21 Subjective Update: Flip states abdominal pain is controlled, passing gas but no stools. Denies any fevers, cough, shortness of breath. Functional Status: Reports: Pain Controlled. Denies: New Symptoms - Patient Data Vitals - Most Recent: Last Vital Signs Temp 98.1 F 04/10/21 11:49 Pulse 77 04/10/21 11:49 Resp 20 04/10/21 11:49 BP 148/61 H 04/10/21 11:49 Pulse Ox 94 L 04/10/21 11:49 Weight - Most Recent: 133 lb 6 oz I&O - Last 24 hours: Intake & Output 04/09/21 04/10/21 04/10/21 22:59 06:59 14:59 Intake Total 798 897 Output Total 350 280 Balance 448 617 Med Orders - Current: Current Medications Discontinued Medications Albuterol/Ipratropium (Albuterol/Ipratropium 3.0-0.5 Mg/3 Ml Neb Soln) 3 ml INH Q4H PRN PRN Reason: Shortness Of Breath/wheezing Citalopram Hydrobromide (Citalopram 20 Mg Tab) 20 mg PO DAILY [facility] Last Admin: 04/10/21 08:50 Dose: 20 mg Documented by: Diatrizoate Meglum/Diatrizoate Sod (Diatrizoate Meglumine/Diatrizoate Sodium 37% 30 Ml Bottle) 30 ml PO . DIRECTED ONE Stop: 04/08/21 16:19 Last Admin: 04/08/21 17:18 Dose: 30 ml Documented by: Enoxaparin Sodium (Enoxaparin 30 Mg/0.3 Ml Syringe) 30 mg SUBCUT Q24H [facility] Last Admin: 04/09/21 17:05 Dose: 30 mg Documented by: Hydromorphone HCl (Hydromorphone 2 Mg/Ml Sdv) 2 mg IVPUSH Q2H PRN PRN Reason: Abdominal Pain Last Admin: 04/10/21 10:18 Dose: 2 mg Documented by: Sodium Chloride (Normal Saline) 1,000 mls @ 125 mls/hr IV ASDIRECTED [facility] Last Admin: 04/10/21 09:36 Dose: 125 mls/hr Documented by: Ciprofloxacin/Dextrose 400 mg/ (Premix) 200 mls @ 200 mls/hr IV Q8H [facility] Last Admin: 04/09/21 08:51 Dose: 200 mls/hr Documented by: Metronidazole 500 mg/ Premix 100 mls @ 100 mls/hr IV Q8H [facility] Metronidazole 500 mg/ Premix 100 mls @ 100 mls/hr IV Q8H [facility] Last Admin: 04/10/21 09:36 Dose: 100 mls/hr Documented by: Ciprofloxacin/Dextrose (Cipro In D5w 400 Mg/200 Ml) 200 mls @ 200 mls/hr IV Q12H [facility] Last Admin: 04/10/21 08:47 Dose: 200 mls/hr Documented by: Iopamidol (Iopamidol 755 Mg/Ml 75 Ml Bottle) 75 ml IV ONETIME ONE Stop: 04/08/21 16:19 Last Admin: 04/08/21 17:18 Dose: 67 ml Documented by: Melatonin (Melatonin 3 Mg Tab) 9 mg PO BEDTIME PRN PRN Reason: Insomnia Last Admin: 04/08/21 22:19 Dose: 9 mg Documented by: Morphine Sulfate (Morphine 2 Mg/Ml Syringe) 2 mg IVPUSH Q2H PRN PRN Reason: Pain (severe 7-10) Last Admin: 04/09/21 04:40 Dose: 2 mg Documented by: Nicotine (Nicotine 14 Mg/24 Hr Patch) 14 mg TRDERM DAILY [facility] Sodium Chloride (Sodium Chloride 0.9% 10 Ml Syringe) 10 ml FLUSH ASDIRECTED PRN PRN Reason: Keep Vein Open Last Admin: 04/10/21 05:21 Dose: 10 ml Documented by: Ticagrelor (Ticagrelor 90 Mg Tab) 90 mg PO BID [facility] Last Admin: 04/10/21 08:50 Dose: 90 mg Documented by: - Exam General: Reports: Alert, Oriented, Cooperative Lungs: Reports: Clear to Auscultation, Normal Respiratory Effort Cardiovascular: Reports: Regular Rate, Regular Rhythm GI/Abdominal Exam: Normal Bowel Sounds, Soft, No Distention, Guarding, Tender (LLQ) (Male) Exam: Deferred Rectal (Males) Exam: Deferred Extremities: No Pedal Edema, Normal Capillary Refill Skin: Reports: Warm, Dry, Intact
--- NOTE | 2021-04-10 13:30 | CONS ---
DATE OF CONSULTATION: 04/09/2021 HISTORY: This 75-year-old gentleman is seen in consultation from Dr. Juarez for abdominal pain and abnormal CT scan. The patient was admitted yesterday with a 3-day history of increasing left lower abdominal pain. He had a history of diverticulitis with an abscess in December, which responded to antibiotics. He did have a stroke in the interim. He had a colonoscopy on April [address] Stephens at [facility] in [place] and had several polyps removed. He also had an upper endoscopy performed because of anemia and was found to have some inflammation in the duodenum and stomach. The patient presented to the clinic yesterday with worsening abdominal pain again and admitted to the hospital. CT scan was obtained which shows enlargement of the abscess in the left lower quadrant, now measuring 4.0 x 2.3 cm. I have reviewed these images. Images were reviewed by Interventional Radiology and this is not amenable to percutaneous drainage. The patient's labs are reviewed. White blood cell count is mildly elevated at 10.9. Other labs are within normal limits other than his hemoglobin remaining low at 9.5. He is malnourished with an albumin of 2.4. PHYSICAL EXAMINATION: GENERAL: Reveals a pleasant gentleman in no acute distress. He is resting comfortably in bed. VITAL SIGNS: Reviewed and he has been afebrile. ABDOMEN: He has been passing small amounts of flatus. His abdomen is soft throughout. There is some lower abdominal tenderness, but no peritoneal signs. No masses or hernias are seen. ASSESSMENT: Diverticular abscess. PLAN: The patient will continue his IV antibiotics. This will likely need surgical removal. He is stable tonight and will look to transfer to [facility] tomorrow for further intervention. /[id number] TORITO/CARLEE
== END 2021-04-10 12:10 | DRG 392 ==
LOC: FB.MS 14:11
PROVIDERS: ADMIT Family Medicine; ATTEND Family Medicine
DX: K57.20 Diverticulitis of large intestine with perforation and abscess without bleeding (principal); Z79.82 Long term (current) use of aspirin; Z79.899 Other long term (current) drug therapy; Z86.73 Personal history of transient ischemic attack (TIA), and cerebral infarction without residual deficits
CPT/HCPCS: 36415; 74177; 80053; 83605; 85025; A9270-GY; J0744; J1170; J1650; J2270; J3490; J7030; Q9963; Q9967

== ENCOUNTER 2021-04-14 09:03 | Inpatient (IN) | payer MEDICAID, MEDICARE ==
[2021-04-14] MEDS ORDERED: Acetaminophen 325 MG Tab PO PRN (13:53)
[2021-04-14] MEDS ORDERED: Albuterol 8 GM Inhaler INH PRN (13:53)
[2021-04-14] MEDS ORDERED: Ondansetron 4 MG Tab.DIS PO PRN (14:02)
[2021-04-14] MEDS: metroNIDAZOLE 500 MG Tab PO SCH ×2 (14:12→22:01)
[2021-04-14] MEDS: Sodium Chloride 0.9% 10 ML Syringe FLUSH PRN (14:16)
[2021-04-14] MEDS: cefTRIAXone 2 GM Vial IVPUSH SCH (14:16)
--- NOTE | 2021-04-14 15:55 | PCM.HP.2 ---
H&P History of Present Illness - General Date of Service: 04/14/21 Admit Problem/Dx: Admission Diagnosis/Problem Admission Diagnosis/Problem Abscess Source of Information: Patient, Old Records, Provider History Limitations: Reports: No Limitations - History of Present Illness Initial Comments - Free Text/Narative: Flip returns to [place] from [facility] for IV antibiotics and therapy after being transferred to on 04/10 for colonic abscess secondary to diverticulitis. He was evaluated by IR and surgery which was not amenable to IR drainage. He is to have repeat CT abdomen/pelvis in 4-6 weeks and referral to colorectal surgery. He was able to drive prior to hospitalization and has been weak due to infection, once he mets therapy goals and able to drive he can be discharged and continue IV Rocephin under outpatient services. He is to be on IV Rocephin 2 g daily and Flagyl 500 mg po q8h until May 25. Infectious Disease have requested weekly labs until complete course. - Related Data Allergies/Adverse Reactions: Allergies Allergy/AdvReac Type Severity Reaction Status Date / Time No Known Allergies Allergy Verified 04/14/21 14:06 Home Medications: Home Meds Albuterol [Ventolin HFA] 1 - 2 puff IH Q4H PRN 04/08/21 [History] Aspirin [Halfprin] 81 mg PO DAILY 04/08/21 [History] Citalopram [Citalopram HBr] 20 mg PO DAILY 04/08/21 [History] Melatonin 10 mg PO BEDTIME 04/08/21 [History] Sennosides [Senokotxtra] 17.2 mg PO BEDTIME 04/08/21 [History] Ticagrelor [Brilinta] 90 mg PO BID 04/08/21 [History] ondansetron HCL [Zofran] 4 mg PO QID PRN 04/08/21 [History] Sodium Chloride 0.9% [Saline Flush] 10 ml FLUSH ASDIRECTED PRN syringe 04/10/21 [Rx] Acetaminophen [Tylenol] 650 mg PO Q4H PRN 04/14/21 [History] Heparin Sodium,Porcine/PF [Heparin IV Flush 100 Units/ml] 300 units FLUSH ASDIRECTED 04/14/21 [History] atorvaSTATin [Lipitor] 80 mg PO BEDTIME 04/14/21 [History] cefTRIAXone [Rocephin] 2 gm IVPUSH Q24H 04/14/21 [History] metroNIDAZOLE [Flagyl] 500 mg PO Q8H 04/14/21 [History] oxyCODONE 5 mg PO Q4H PRN 04/14/21 [History] Past Medical History HEENT History: Reports: Impaired Vision Cardiovascular History: Reports: Other (See Below) Other Cardiovascular History: stroke Respiratory History: Reports: COPD Gastrointestinal History: Reports: Diverticulosis Musculoskeletal History: Reports: Fracture Other Musculoskeletal History: hx fx L arm, hand, Psychiatric History: Reports: Addiction - Infectious Disease History Infectious Disease History: Reports: Chicken Pox, Measles, Mumps - Past Surgical History HEENT Surgical History: Reports: Adenoidectomy, Tonsillectomy Musculoskeletal Surgical History: Reports: None Social & Family History - Family History Family Medical History: No Pertinent Family History - Tobacco Use Tobacco Use Status *Q: Former Tobacco User Used Tobacco, but Quit: Yes Month/Year Tobacco Last Used: 11/2020 - Caffeine Use Caffeine Use: Reports: Coffee H&P Review of Systems - Review of Systems: Review Of Systems: See Below General: Reports: No Symptoms HEENT: Reports: No Symptoms Pulmonary: Reports: No Symptoms Cardiovascular: Reports: No Symptoms Gastrointestinal: Reports: No Symptoms Genitourinary: Reports: No Symptoms Musculoskeletal: Reports: No Symptoms Skin: Reports: No Symptoms Psychiatric: Reports: No Symptoms Exam - Exam Exam: See Below - Vital Signs Vital Signs: Last Vital Signs Temp 98.0 F 04/14/21 13:02 Pulse 65 04/14/21 13:02 Resp 18 04/14/21 13:02 BP 137/53 L 04/14/21 13:02 Pulse Ox 98 04/14/21 13:02 Weight: 128 lb 11.2 oz - Exam General: Alert, Oriented, Cooperative HEENT: PERRLA, EOMI, Hearing Intact, Mucosa Moist & Miner Lungs: Clear to Auscultation, Normal Respiratory Effort Cardiovascular: Regular Rate, Regular Rhythm GI/Abdominal Exam: Normal Bowel Sounds, Soft, Non-Tender, No Distention Extremities: No Pedal Edema, Normal Capillary Refill, Pallor Peripheral Pulses: 2+: Radial (L), Radial (R), Posterior Tibial (L), Posterior Tibial (R), Dorsalis Pedis (L), Dorsalis Pedis (R) Skin: Warm, Dry, Intact Sepsis Event Note - Evaluation Sepsis Screening Result: No Definite Risk - Focused Exam Vital Signs: Vital Signs Temp Pulse Resp BP Pulse Ox 04/14/21 13:02 98.0 F 65 18 137/53 L 98 *Q Meaningful Use (ADM) - VTE *Q VTE Mechanical Contraindications *Q: At Risk for Falls - Problem List (1) Diverticulitis of intestine with abscess SNOMED Code(s): 493796725, 8282912737810 ICD Code: K57.80 - DVTRCLI OF INTEST, PART UNSP, W PERF AND ABSCESS W/O BLEED Status: Acute Current Visit: No Qualifiers: Diverticulitis site: large intestine (2) Weakness SNOMED Code(s): 32939830 ICD Code: R53.1 - WEAKNESS Status: Acute Current Visit: Yes (3) Dizziness SNOMED Code(s): 702658449, 334647259 ICD Code: R42 - DIZZINESS AND GIDDINESS Status: Chronic Current Visit: Yes (4) History of cerebellar stroke SNOMED Code(s): 213668536580180 ICD Code: Z86.73 - PRSNL HX OF TIA (TIA), AND CEREB INFRC W/O RESID DEFICITS Status: Chronic Current Visit: Yes Problem List Initiated/Reviewed/Updated: Yes Orders Last 24hrs: Active Orders 24 hr Category Date Time Status Patient Status [ADT] Routine ADT 04/14/21 13:48 Active Height and Weight [RC] .TUE 06 Care 04/14/21 13:48 Active Oxygen Therapy [RC] .PRN Care 04/14/21 13:48 Active RT Post Treatment Assessment [RC] Click to Edit Care 04/14/21 13:56 Active VTE/DVT Education [RC] 08 Care 04/14/21 13:48 Active Vital Signs [RC] 08 Care 04/14/21 13:48 Active OT Evaluation and Treatment [CONS] Routine Cons 04/14/21 13:50 Active PT Evaluation and Treatment [CONS] Routine Cons 04/14/21 13:50 Active Regular Diet [DIET] Diet 04/14/21 Lunch Active Acetaminophen [TylenoL] Med 04/14/21 13:53 Active 650 mg PO Q4H PRN Albuterol [Ventolin HFA] Med 04/14/21 13:53 Active 0 gm INH Q4H PRN Aspirin [Halfprin] Med 04/15/21 09:00 Active 81 mg PO DAILY Citalopram [Celexa] Med 04/15/21 09:00 Active 20 mg PO DAILY Heparin Sodium [Heparin Lock Flush 100 Units/ML] Med 04/14/21 14:00 Active 300 units FLUSH ASDIRECTED PRN Heparin Sodium [Heparin Lock Flush 100 Units/ML] Med 04/14/21 14:15 Active 300 units FLUSH Q24H Melatonin Med 04/14/21 21:00 Active 9 mg PO BEDTIME Ondansetron [Zofran ODT] Med 04/14/21 14:02 Active 4 mg PO QID PRN Sennosides [Senna] Med 04/14/21 21:00 Active 17.2 mg PO BEDTIME Sodium Chloride 0.9% [Saline Flush] Med 04/14/21 13:56 Active 10 ml FLUSH ASDIRECTED PRN Ticagrelor [Brilinta] Med 04/14/21 21:00 Active 90 mg PO BID atorvaSTATin [Lipitor] Med 04/14/21 21:00 Active 80 mg PO BEDTIME cefTRIAXone [Rocephin] Med 04/14/21 14:00 Active 2 gm IVPUSH Q24H metroNIDAZOLE [Flagyl] Med 04/14/21 14:00 Active 500 mg PO Q8H Antiembolic Hose [OM.PC] Per Unit Routine Oth 04/14/21 13:50 Ordered Resuscitation Status Routine Resus Stat 04/14/21 13:48 Ordered Medication Orders Acetaminophen (Acetaminophen 325 Mg Tab) 650 mg PO Q4H PRN PRN Reason: moderate pain Albuterol (Albuterol 8 Gm Inhaler) 0 gm INH Q4H PRN PRN Reason: Shortness of Breath Aspirin (Aspirin 81 Mg Tab.Ec) 81 mg PO DAILY TOÑO Atorvastatin Calcium (Atorvastatin 40 Mg Tab) 80 mg PO BEDTIME TOÑO Ceftriaxone Sodium (Ceftriaxone 2 Gm Vial) 2 gm IVPUSH Q24H TOÑO Stop: 05/25/21 23:55 Last Admin: 04/14/21 14:16 Dose: 2 gm Documented by: KALLIE Citalopram Hydrobromide (Citalopram 20 Mg Tab) 20 mg PO DAILY TOÑO Heparin Sodium (Porcine) (Heparin Sodium 100 Units/Ml 5 Ml Syringe) 300 units FLUSH ASDIRECTED PRN PRN Reason: PATENCY Heparin Sodium (Porcine) (Heparin Sodium 100 Units/Ml 5 Ml Syringe) 300 units FLUSH Q24H TOÑO Last Admin: 04/14/21 14:25 Dose: 300 units Documented by: KALLIE Melatonin (Melatonin 3 Mg Tab) 9 mg PO BEDTIME TOÑO Metronidazole (Metronidazole 500 Mg Tab) 500 mg PO Q8H [facility] Stop: 05/25/21 23:55 Last Admin: 04/14/21 14:12 Dose: 500 mg Documented by: KALLIE Ondansetron HCl (Ondansetron 4 Mg Tab.Dis) 4 mg PO QID PRN PRN Reason: Nausea Senna (Sennosides 8.6 Mg Tab) 17.2 mg PO BEDTIME TOÑO Sodium Chloride (Sodium Chloride 0.9% 10 Ml Syringe) 10 ml FLUSH ASDIRECTED PRN PRN Reason: Keep Vein Open Last Admin: 04/14/21 14:16 Dose: 10 ml Documented by: KALLIE Ticagrelor (Ticagrelor 90 Mg Tab) 90 mg PO BID [facility] Assessment/Plan Comment:: 1. Admit to swing bed for rehab services and IV antibiotics. 2. Colonic abscess with diverticulitis: Rocephin 2 g IV q24h, Flagyl 500 mg po q8h until May 25. Weekly labs sent to ID: CBC with diff, CR, ALT, ESR, CRP. PICC line was placed 04/13. Heparin & saline flush per protocol. He has not used oxycodone for pain for past 3 days and states he does not need anything for pain so will not restart on swing bed admission. 3. Weakness: PT/OT evaluation & treat. 4. Continue home medications. 5. Diet: regular. 6. Activity: up to chair and with assistance, advance per PT/OT. 7. CODE STATUS: DNR, yes to intubation. 8. Discharge planning: anticipate discharge once meets therapy goals then would come in for outpatient IV Rocephin until he completes course 05/25/21. - Mortality Measure Prognosis:: Good
[2021-04-14] MEDS: atorvaSTATin 40 MG Tab PO SCH (21:12)
[2021-04-14] MEDS: Sennosides 8.6 MG Tab PO SCH (21:12)
[2021-04-14] MEDS: Ticagrelor 90 MG Tab PO SCH (21:12)
[2021-04-14] MEDS: Melatonin 3 MG Tab PO SCH (21:12)
[2021-04-15] MEDS: metroNIDAZOLE 500 MG Tab PO SCH ×3 (06:18→21:50)
[2021-04-15] MEDS: Aspirin 81 MG Tab.EC PO SCH (08:18)
[2021-04-15] MEDS: Ticagrelor 90 MG Tab PO SCH ×2 (08:19→21:49)
[2021-04-15] MEDS: Citalopram 20 MG Tab PO SCH (08:19)
[2021-04-15] MEDS: cefTRIAXone 2 GM Vial IVPUSH SCH (14:24)
[2021-04-15] MEDS: Sodium Chloride 0.9% 10 ML Syringe FLUSH PRN (14:24)
[2021-04-15] MEDS: atorvaSTATin 40 MG Tab PO SCH (21:49)
[2021-04-15] MEDS: Melatonin 3 MG Tab PO SCH (21:49)
[2021-04-15] MEDS: Sennosides 8.6 MG Tab PO SCH (21:49)
[2021-04-16] MEDS: metroNIDAZOLE 500 MG Tab PO SCH ×2 (05:57→13:05)
[2021-04-16] MEDS ORDERED: Calcium Carbonate 500 MG Tab.Chew PO PRN (08:21)
[2021-04-16] MEDS ORDERED: Pantoprazole 40 MG Tab.CR PO SCH (08:21)
[2021-04-16] MEDS: Citalopram 20 MG Tab PO SCH (08:37)
[2021-04-16] MEDS: Ticagrelor 90 MG Tab PO SCH (08:37)
[2021-04-16] MEDS: Aspirin 81 MG Tab.EC PO SCH (08:38)
--- NOTE | 2021-04-16 10:56 | PCM.DCSUM1 ---
Discharge Summary - Hospital Course HPI Initial Comments: raymond returns to [facility] from [facility] for IV antibiotics and therapy after being transferred to on 04/10 for colonic abscess secondary to diverticulitis. He was evaluated by IR and surgery which was not amenable to IR drainage. He is to have repeat CT abdomen/pelvis in 4-6 weeks and referral to colorectal surgery. He was able to drive prior to hospitalization and has been weak due to infection, once he mets therapy goals and able to drive he can be discharged and continue IV Rocephin under outpatient services. He is to be on IV Rocephin 2 g daily and Flagyl 500 mg po q8h until May 25. Infectious Disease have requested weekly labs until complete course. Diagnosis: Stroke: No - Discharge Data Discharge Date: 04/16/21 Discharge Disposition: Home, Self-Care 01 Condition: Good - Referral to Home Health Primary Care Physician: Shiva Rae MD - Discharge Diagnosis/Problem(s) (1) Diverticulitis of intestine with abscess SNOMED Code(s): 828030636, 9206341235027 ICD Code: K57.80 - DVTRCLI OF INTEST, PART UNSP, W PERF AND ABSCESS W/O BLEED Status: Acute Current Visit: No Qualifiers: Diverticulitis site: large intestine (2) Weakness SNOMED Code(s): 24049351 ICD Code: R53.1 - WEAKNESS Status: Resolved Current Visit: Yes (3) Dizziness SNOMED Code(s): 325606891, 160315445 ICD Code: R42 - DIZZINESS AND GIDDINESS Status: Chronic Current Visit: Yes (4) History of cerebellar stroke SNOMED Code(s): 315993219243174 ICD Code: Z86.73 - PRSNL HX OF TIA (TIA), AND CEREB INFRC W/O RESID DEFICITS Status: Chronic Current Visit: Yes - Patient Summary/Data Consults: Consultations 04/14/21 13:50 OT Evaluation and Treatment [CONS] Routine Please Evaluate and Treat. OT Reason for Consult: ADL's This query below is only for informational purposes and is not editable. Admission Diagnosis/Problem: Abscess PT Evaluation and Treatment [CONS] Routine Please Evaluate and Treat. PT Reason for Consult: Ambulation This query below is only for informational purposes and is not editable. Admission Diagnosis/Problem: Abscess Hospital Course: Flip was admitted for rehab services and IV antibiotics. He was evaluated by PT/OT and he did not require any of there services, he ambulated 300' without assistance. He was independent in his room and did all his own ADLs. He will go home today with outpatient services for IV Rocephin 2 gm q24h, all orders placed for weekly labs to be sent to [facility], heparin flush after Rocephin and saline flush before & after Rocephin until May 25. Follow up appts in discharge orders, he had follow up appt for Dr Rae on 04/14 the day he was admitted so will move appt back to . - Patient Instructions Diet: Usual Diet as Tolerated Activity: As Tolerated Driving: May Drive Today Showering/Bathing: May Shower Notify Provider of: Fever, Increased Pain, Nausea and/or Vomiting Other/Special Instructions: Follow up with Dr Rae Apr 21. Follow up with Dr Georges on Apr 27 at 3pm. Follow up with Isabel Serrano CNP at [facility] on May 07 at 10am. Follow up with Dr Rojas on May 26 at 230pm. Come to [facility] daily for your IV Rocephin dose until May 25, you will also have labs every Tuesday to be sent to [facility]. - Discharge Plan *PRESCRIPTION DRUG MONITORING PROGRAM REVIEWED*: Not Applicable *COPY OF PRESCRIPTION DRUG MONITORING REPORT IN PATIENT MARGO: Not Applicable Prescriptions/Med Rec: metroNIDAZOLE [Flagyl] 500 mg PO Q8H #125 tab Omeprazole 20 mg PO DAILY #30 tablet. Home Medications: Home Meds Albuterol [Ventolin HFA] 1 - 2 puff IH Q4H PRN 04/08/21 [History] Aspirin [Halfprin] 81 mg PO DAILY 04/08/21 [History] Citalopram [Citalopram HBr] 20 mg PO DAILY 04/08/21 [History] Melatonin 10 mg PO BEDTIME 04/08/21 [History] Sennosides [Senokotxtra] 17.2 mg PO BEDTIME 04/08/21 [History] Ticagrelor [Brilinta] 90 mg PO BID 04/08/21 [History] ondansetron HCL [Zofran] 4 mg PO QID PRN 04/08/21 [History] Acetaminophen [Tylenol] 650 mg PO Q4H PRN 04/14/21 [History] atorvaSTATin [Lipitor] 80 mg PO BEDTIME 04/14/21 [History] cefTRIAXone [Rocephin] 2 gm IVPUSH Q24H 04/14/21 [History] Calcium Carbonate [Tums] 1,000 mg PO Q2H PRN tab.chew 04/16/21 [Rx] Omeprazole 20 mg PO DAILY #30 tablet. 04/16/21 [Rx] metroNIDAZOLE [Flagyl] 500 mg PO Q8H #125 tab 04/16/21 [Rx] Oxygen Therapy Mode: Room Air Referrals: Ion Rojas MD [Ordering Only Provider] - Shiva Rae MD [Primary Care Provider] - Isabel Serrano NP [Ordering Only Provider] - Ole Georges MD [Ordering Only Provider] - - Discharge Summary/Plan Comment DC Time >30 min.: No Total # of Minutes for Discharge Time: 15 min - General Info Date of Service: 04/16/21 Subjective Update: Flip is feeling good this morning. No complaints of pain. Eating well. Ambulating the halls without LOB or difficulty. Regular bowel movements. Functional Status: Reports: Pain Controlled, Tolerating Diet, Ambulating, Urinating. Denies: New Symptoms - Patient Data Vitals - Most Recent: Last Vital Signs Temp 95.7 F L 04/16/21 08:30 Pulse 61 04/16/21 08:30 Resp 18 04/16/21 08:30 BP 129/66 04/16/21 08:30 Pulse Ox 97 04/16/21 08:30 Weight - Most Recent: 128 lb 11.2 oz Med Orders - Current: Current Medications Acetaminophen (Acetaminophen 325 Mg Tab) 650 mg PO Q4H PRN PRN Reason: moderate pain Albuterol (Albuterol 8 Gm Inhaler) 0 gm INH Q4H PRN PRN Reason: Shortness of Breath Aspirin (Aspirin 81 Mg Tab.Ec) 81 mg PO DAILY [facility] Last Admin: 04/16/21 08:38 Dose: 81 mg Documented by: Atorvastatin Calcium (Atorvastatin 40 Mg Tab) 80 mg PO BEDTIME TOÑO Last Admin: 04/15/21 21:49 Dose: 80 mg Documented by: Calcium Carbonate/Glycine (Calcium Carbonate 500 Mg Tab.Chew) 1,000 mg PO Q2H PRN PRN Reason: Indigestion Ceftriaxone Sodium (Ceftriaxone 2 Gm Vial) 2 gm IVPUSH Q24H [facility] Citalopram Hydrobromide (Citalopram 20 Mg Tab) 20 mg PO DAILY [facility] Last Admin: 04/16/21 08:37 Dose: 20 mg Documented by: Heparin Sodium (Porcine) (Heparin Sodium 100 Units/Ml 5 Ml Syringe) 300 units FLUSH ASDIRECTED PRN PRN Reason: PATENCY Heparin Sodium (Porcine) (Heparin Sodium 100 Units/Ml 5 Ml Syringe) 300 units FLUSH Q24H [facility] Last Admin: 04/15/21 14:33 Dose: 300 units Documented by: Melatonin (Melatonin 3 Mg Tab) 9 mg PO BEDTIME [facility] Last Admin: 04/15/21 21:49 Dose: 9 mg Documented by: Metronidazole (Metronidazole 500 Mg Tab) 500 mg PO Q8H [facility] Stop: 05/25/21 23:55 Last Admin: 04/16/21 05:57 Dose: 500 mg Documented by: Ondansetron HCl (Ondansetron 4 Mg Tab.Dis) 4 mg PO QID PRN PRN Reason: Nausea Pantoprazole Sodium (Pantoprazole 40 Mg Tab.Cr) 40 mg PO 0600 [facility] Last Admin: 04/16/21 09:19 Dose: 40 mg Documented by: Senna (Sennosides 8.6 Mg Tab) 17.2 mg PO BEDTIME [facility] Last Admin: 04/15/21 21:49 Dose: 17.2 mg Documented by: Sodium Chloride (Sodium Chloride 0.9% 10 Ml Syringe) 10 ml FLUSH ASDIRECTED PRN PRN Reason: Keep Vein Open Last Admin: 04/15/21 14:24 Dose: 10 ml Documented by: Ticagrelor (Ticagrelor 90 Mg Tab) 90 mg PO BID [facility] Last Admin: 04/16/21 08:37 Dose: 90 mg Documented by: Discontinued Medications Ceftriaxone Sodium (Ceftriaxone 2 Gm Vial) 2 gm IVPUSH Q24H [facility] Stop: 05/25/21 23:55 Last Admin: 04/15/21 14:24 Dose: 2 gm Documented by: - Exam General: Reports: Alert, Oriented, Cooperative, No Acute Distress Lungs: Reports: Clear to Auscultation, Normal Respiratory Effort Cardiovascular: Reports: Regular Rate, Regular Rhythm GI/Abdominal Exam: Normal Bowel Sounds, Soft, Non-Tender, No Distention Extremities: No Pedal Edema, Normal Capillary Refill *Q Meaningful Use (DIS) - VTE *Q VTE Mechanical Contraindications *Q: At Risk for Falls
[2021-04-16] MEDS: Sodium Chloride 0.9% 10 ML Syringe FLUSH PRN (11:10)
[2021-04-16] MEDS ORDERED: cefTRIAXone 2 GM Vial IVPUSH SCH (12:00)
== END 2021-04-16 13:05 | disposition home or self-care (01) | DRG 391 ==
LOC: FB.MS 12:45
PROVIDERS: ADMIT Family Medicine; ATTEND Family Medicine
DX: K57.20 Diverticulitis of large intestine with perforation and abscess without bleeding (principal); E43 Unspecified severe protein-calorie malnutrition; F19.20 Other psychoactive substance dependence, uncomplicated; Z66 Do not resuscitate; H54.7 Unspecified visual loss; J44.9 Chronic obstructive pulmonary disease, unspecified; Z86.19 Personal history of other infectious and parasitic diseases; Z90.49 Acquired absence of other specified parts of digestive tract; Z86.73 Personal history of transient ischemic attack (TIA), and cerebral infarction without residual deficits; Z79.82 Long term (current) use of aspirin; Z79.899 Other long term (current) drug therapy; Z90.89 Acquired absence of other organs; Z87.891 Personal history of nicotine dependence; R42 Dizziness and giddiness
CPT/HCPCS: 97162-GP; 97166-GO; A9270-GY; J0696; J1642

== ENCOUNTER 2021-05-17 14:30 | Emergency (ER) | payer MEDICARE, MEDICAID ==
[2021-05-17] MEDS ORDERED: Ketorolac 30 MG/ML SDV IM ONE (15:18)
--- NOTE | 2021-05-17 15:22 | EDM.PDOC ---
ED HPI GENERAL MEDICAL PROBLEM - General Chief Complaint: Abdominal Pain Stated Complaint: ABD PAIN Time Seen by Provider: 05/17/21 14:40 Source of Information: Reports: Patient History Limitations: Reports: No Limitations - History of Present Illness INITIAL COMMENTS - FREE TEXT/NARRATIVE: c/o abd pain x 2d pt comes in to ED as outpt daily for ceftriaxone x 4m for h/o pericolonic abscess that was no longer present on CT 6d ago was hospitalized in [place] 2x at beginning of supper no alcohol in weeks lives with nephew, sister lives around corner last day for antbx is planned on 05/25 CBC and BMP and CRP all neg 6d ago (gets weekly labs) pt came in for his daily ceftriaxone and asked to be seen by physician has had cramping pain for 2 min across upper abd x 2d, has tender alone right colon Abdominal Pain Score (Numeric/FACES): 3 - Related Data Allergies Allergy/AdvReac Type Severity Reaction Status Date / Time No Known Allergies Allergy Verified 04/14/21 14:06 Home Meds: Home Meds Albuterol [Ventolin HFA] 1 - 2 puff IH Q4H PRN 04/08/21 [History] Aspirin [Halfprin] 81 mg PO DAILY 04/08/21 [History] Citalopram [Citalopram HBr] 20 mg PO DAILY 04/08/21 [History] Melatonin 10 mg PO BEDTIME 04/08/21 [History] Sennosides [Senokotxtra] 17.2 mg PO BEDTIME 04/08/21 [History] Ticagrelor [Brilinta] 90 mg PO BID 04/08/21 [History] ondansetron HCL [Zofran] 4 mg PO QID PRN 04/08/21 [History] Acetaminophen [Tylenol] 650 mg PO Q4H PRN 04/14/21 [History] atorvaSTATin [Lipitor] 80 mg PO BEDTIME 04/14/21 [History] cefTRIAXone [Rocephin] 2 gm IVPUSH Q24H 04/14/21 [History] Calcium Carbonate [Tums] 1,000 mg PO Q2H PRN tab.chew 04/16/21 [Rx] Omeprazole 20 mg PO DAILY #30 tablet. 04/16/21 [Rx] metroNIDAZOLE [Flagyl] 500 mg PO Q8H #125 tab 04/16/21 [Rx] Ciprofloxacin HCl [Cipro] 500 mg PO BID #20 tablet 05/17/21 [Rx] Past Medical History HEENT History: Reports: Impaired Vision Cardiovascular History: Reports: Other (See Below) Other Cardiovascular History: stroke Respiratory History: Reports: COPD Gastrointestinal History: Reports: Diverticulosis, Other (See Below) Other Gastrointestinal History: Colon abscess Musculoskeletal History: Reports: Fracture Other Musculoskeletal History: hx fx L arm, hand Neurological History: Reports: CVA Psychiatric History: Reports: Addiction - Infectious Disease History Infectious Disease History: Reports: Chicken Pox, Measles, Mumps - Past Surgical History HEENT Surgical History: Reports: Adenoidectomy, Tonsillectomy Musculoskeletal Surgical History: Reports: None Social & Family History - Family History Family Medical History: No Pertinent Family History - Tobacco Use Tobacco Use Status *Q: Current Every Day Tobacco User Years of Tobacco use: 60 Packs/Tins Daily: 0.2 - Caffeine Use Caffeine Use: Reports: Coffee - Recreational Drug Use Recreational Drug Use: No ED ROS GENERAL - Review of Systems Review Of Systems: See Below Constitutional: Reports: No Symptoms HEENT: Reports: No Symptoms Respiratory: Reports: No Symptoms Cardiovascular: Reports: No Symptoms Endocrine: Reports: No Symptoms GI/Abdominal: Reports: Abdominal Pain : Reports: No Symptoms Musculoskeletal: Reports: No Symptoms Skin: Reports: No Symptoms Neurological: Reports: No Symptoms Psychiatric: Reports: No Symptoms Hematologic/Lymphatic: Reports: No Symptoms Immunologic: Reports: No Symptoms ED EXAM, GI/ABD - Physical Exam Exam: See Below Exam Limited By: No Limitations General Appearance: Alert, WD/WN, Other (alert, pleasant, does grunt a little bit when walking and appears slightly uncomfortable altho no limp and moves easily) Nose: Normal Inspection Head: Atraumatic, Normocephalic Neck: Normal Inspection, Supple, Non-Tender, Full Range of Motion. No: Lymphadenopathy (R), Lymphadenopathy (L) Respiratory/Chest: No Respiratory Distress, Lungs Clear, Normal Breath Sounds Cardiovascular: Other (freq PB's, 2/6 CRISSY at LSB, no gallop) GI/Abdominal Exam: Normal Bowel Sounds, Soft, Other (thin, soft, 1+ tender along R colon to deeper palpation, epigastrium and L side of abd nontender) Back Exam: Normal Inspection, Full Range of Motion. No: CVA Tenderness (R), CVA Tenderness (L) Extremities: Normal Inspection, Normal Range of Motion, No Pedal Edema Neurological: Alert, Oriented, CN II-XII Intact, Normal Cognition, No Motor/Sensory Deficits Psychiatric: Normal Affect, Normal Mood Skin Exam: Warm, Dry, Intact, Normal Color, No Rash Lymphatic: No Adenopathy Course - Vital Signs Last Recorded V/S: Last Vital Signs Temp 37.3 C 05/17/21 14:40 Pulse 88 05/17/21 14:40 Resp 18 05/17/21 14:40 BP 133/76 05/17/21 14:40 Pulse Ox 98 05/17/21 14:40 - Orders/Labs/Meds Orders: Active Orders 24 hr Category Date Time Status CULTURE URINE [RM] Stat Lab 05/17/21 16:07 Ordered Ciprofloxacin [Ciprofloxacin HCl] Med 05/17/21 16:29 Once 500 mg PO ONETIME ONE Labs: Laboratory Tests 05/17/21 05/17/21 05/17/21 Range/Units 15:24 15:25 15:25 WBC 10.5 H (3.2-10.1) x10-3/uL RBC 4.28 (3.90-5.90) x10(6)uL Hgb 10.9 L (12.9-17.7) g/dL Hct 34.6 L (38.3-50.1) % MCV 80.8 (80.8-98.7) fL MCH 25.4 L (27.0-33.3) pg MCHC 31.5 (28.7-35.3) g/dL RDW 20.4 H (12.4-15.0) % Plt Count 506 H (117-477) x10(3)uL MPV 7.1 (6.7-11.0) fL Neut % (Auto) 62.8 (40.3-71.8) % Lymph % (Auto) 24.0 (15.8-45.3) % [place] % (Auto) 11.1 (5.5-15.2) % Eos % (Auto) 1.8 (0.1-6.8) % Baso % (Auto) 0.3 (0.3-3.8) % Neut # (Auto) 6.6 (1.7-6.9) x10-3/uL Lymph # (Auto) 2.5 (0.5-4.5) x10-3/uL [place] # (Auto) 1.2 (0.0-1.2) x10-3/uL Eos # (Auto) 0.2 (0.0-0.6) x10-3/uL Baso # (Auto) 0.0 (0.0-0.3) x10-3/uL Sodium 140 (135-145) mmol/L Potassium 4.3 (3.5-5.3) mmol/L Chloride 105 (100-110) mmol/L Carbon Dioxide 26 (21-32) mmol/L BUN 18 (7-18) mg/dL Creatinine 1.1 (0.70-1.30) mg/dL Est Cr Clr Drug Dosing 53.72 mL/min Estimated GFR (MDRD) > 60 (>60) BUN/Creatinine Ratio 16.4 (9-20) Glucose 140 H (80-116) mg/dL Calcium 8.9 (8.6-10.2) mg/dL Total Bilirubin 0.2 (0.1-1.3) mg/dL AST 25 D (5-25) IU/L ALT 28 (12-36) U/L Alkaline Phosphatase 110 (56-112) IU/L C-Reactive Protein (0.5-0.9) mg/dL Total Protein 6.7 (6.0-8.0) g/dL Albumin 3.1 L (3.2-4.6) g/dL Globulin 3.6 g/dL Albumin/Globulin Ratio 0.9 Lipase (73-393) U/L Urine Color Brown (YELLOW) Urine Appearance Slightly cloudy (CLEAR) Urine pH 5.0 (5.0-6.5) Ur Specific [place] 1.025 (1.010-1.025) Urine Protein Trace (NEGATIVE) mg/dL Urine Glucose (UA) Normal (NORMAL) mg/dL Urine Ketones 15 H (NEGATIVE) mg/dL Urine Occult Blood Negative (NEGATIVE) Urine Nitrite Positive H (NEGATIVE) Urine Bilirubin Negative (NEGATIVE) Urine Urobilinogen Normal (NEGATIVE) mg/dL Ur Leukocyte Esterase Moderate H (NEGATIVE) U Hyaline Cast (Auto) Few H (NS) Urine RBC 0-5 (0-5) Urine WBC 5-10 H (0-5) Ur Squamous Epith Cells Few H (NS,R,O) Urine Bacteria Moderate H (NS) Urine Mucus Moderate H (NS) 05/17/21 05/17/21 Range/Units 15:25 15:25 WBC (3.2-10.1) x10-3/uL RBC (3.90-5.90) x10(6)uL Hgb (12.9-17.7) g/dL Hct (38.3-50.1) % MCV (80.8-98.7) fL MCH (27.0-33.3) pg MCHC (28.7-35.3) g/dL RDW (12.4-15.0) % Plt Count (117-477) x10(3)uL MPV (6.7-11.0) fL Neut % (Auto) (40.3-71.8) % Lymph % (Auto) (15.8-45.3) % [place] % (Auto) (5.5-15.2) % Eos % (Auto) (0.1-6.8) % Baso % (Auto) (0.3-3.8) % Neut # (Auto) (1.7-6.9) x10-3/uL Lymph # (Auto) (0.5-4.5) x10-3/uL [place] # (Auto) (0.0-1.2) x10-3/uL Eos # (Auto) (0.0-0.6) x10-3/uL Baso # (Auto) (0.0-0.3) x10-3/uL Sodium (135-145) mmol/L Potassium (3.5-5.3) mmol/L Chloride (100-110) mmol/L Carbon Dioxide (21-32) mmol/L BUN (7-18) mg/dL Creatinine (0.70-1.30) mg/dL Est Cr Clr Drug Dosing mL/min Estimated GFR (MDRD) (>60) BUN/Creatinine Ratio (9-20) Glucose (80-116) mg/dL Calcium (8.6-10.2) mg/dL Total Bilirubin (0.1-1.3) mg/dL AST (5-25) IU/L ALT (12-36) U/L Alkaline Phosphatase (56-112) IU/L C-Reactive Protein < 0.2 L (0.5-0.9) mg/dL Total Protein (6.0-8.0) g/dL Albumin (3.2-4.6) g/dL Globulin g/dL Albumin/Globulin Ratio Lipase 140 (73-393) U/L Urine Color (YELLOW) Urine Appearance (CLEAR) Urine pH (5.0-6.5) Ur Specific [place] (1.010-1.025) Urine Protein (NEGATIVE) mg/dL Urine Glucose (UA) (NORMAL) mg/dL Urine Ketones (NEGATIVE) mg/dL Urine Occult Blood (NEGATIVE) Urine Nitrite (NEGATIVE) Urine Bilirubin (NEGATIVE) Urine Urobilinogen (NEGATIVE) mg/dL Ur Leukocyte Esterase (NEGATIVE) U Hyaline Cast (Auto) (NS) Urine RBC (0-5) Urine WBC (0-5) Ur Squamous Epith Cells (NS,R,O) Urine Bacteria (NS) Urine Mucus (NS) Meds: Medications Discontinued Medications Generic Name Dose Route Start Last Admin Trade Name Sundar PRN Reason Stop Dose Admin Ciprofloxacin 500 mg 05/17/21 16:29 Ciprofloxacin 500 Mg Tab PO 05/17/21 16:30 ONETIME ONE Ketorolac Tromethamine 30 mg 05/17/21 15:18 05/17/21 15:22 Ketorolac 30 Mg/Ml Sdv IM 05/17/21 15:19 30 mg ONETIME ONE Administration - Re-Assessments/Exams Free Text/Narrative Re-Assessment/Exam: 05/17/21 16:31 pt in the past 6d now with increase in wbc (7.2 to 10.5) and plts (348 to 506) and glucose 96 to 140) altho CRP remains undetectable tenderness over R colon gone after Toradol 30 mg IM as pt is on ASA and Brillanta for stent in his left posterior neck after his stent this past summer for his CVA, will continue on APAP but not NSAID for cramping and pain u/a c/w UTI (5-10 wbc, moderate bacteria), most likely d/t antibiotic resistant to ceftriaxone will stop ceftriaxone for now (unless different instructions from tomorrow's appointment in [place]) and substitute cipro 500 mg bid x 10d, will have pt continue anaerobe coverate with metronidazole TID as he has been doing pt agrees to take today's labs and today's d/c instructions to his appointment in [place] tomorrow Hever Georges MD from [place] ordered CT abd/pelvis with IV contrast from 6d ago, altho pt not sure if his appointment is with Dr Georges tomorrow or not Departure - Departure Time of Disposition: 16:36 Disposition: Home, Self-Care 01 Condition: Good Clinical Impression: UTI (urinary tract infection), Elevated WBC count, Elevated platelet count, Hyperglycemia - Discharge Information *PRESCRIPTION DRUG MONITORING PROGRAM REVIEWED*: Not Applicable *COPY OF PRESCRIPTION DRUG MONITORING REPORT IN PATIENT MARGO: Not Applicable Prescriptions: Ciprofloxacin HCl [Cipro] 500 mg PO BID #20 tablet Instructions: Urinary Tract Infection, Adult Forms: ED Department Discharge Additional Instructions: Stop coming to the hospital for the daily ceftriaxone via your PICC line for now (unless you receive different instructions from [place]). Instead, take ciprofloxacin 500 mg 1 tab 2 times a day for 10 days. Continue the metronidazole 3 times a day as you have been doing. Continue your other medications. For cramping and pain, take acetaminophen 500 mg 2 tabs 4 times a day for 2 days, longer if needed. For cramping and pain, use dry or moist heat for 10 minutes every 2 hours as needed. Take today's labs and discharge instructions with you to your appointment in [place] tomorrow. Have your physician in [place] call the Emergency Department here ([phone]) tomorrow as needed, as the same physician (Dr Peters) will be on duty tomorrow. Sepsis Event Note (ED) - Evaluation Sepsis Screening Result: No Definite Risk - Focused Exam Vital Signs: Vital Signs Temp Pulse Resp BP Pulse Ox 05/17/21 14:40 37.3 C 88 18 133/76 98 - My Orders Last 24 Hours: My Active Orders 05/17/21 16:07 CULTURE URINE [RM] Stat 05/17/21 16:29 Ciprofloxacin [Ciprofloxacin HCl] 500 mg PO ONETIME ONE - Assessment/Plan Last 24 Hours: My Active Orders 05/17/21 16:07 CULTURE URINE [RM] Stat 05/17/21 16:29 Ciprofloxacin [Ciprofloxacin HCl] 500 mg PO ONETIME ONE
[2021-05-17] MEDS ORDERED: Ciprofloxacin 500 MG Tab PO ONE (16:29)
== END 2021-05-17 16:55 | disposition home or self-care (01) ==
LOC: FB.ED 14:30
DX: N39.0 Urinary tract infection, site not specified (principal); D72.829 Elevated white blood cell count, unspecified; D75.839 Thrombocytosis, unspecified; R73.9 Hyperglycemia, unspecified; J44.9 Chronic obstructive pulmonary disease, unspecified; Z72.0 Tobacco use; Z79.82 Long term (current) use of aspirin; Z79.899 Other long term (current) drug therapy
CPT/HCPCS: 36415; 80053; 81001; 83690; 85025; 86140; 87086; 96372; 99284; A9270-GY; J1885

== ENCOUNTER 2023-08-10 16:40 | Inpatient (IN) | payer MEDICARE ==
[2023-08-10] MEDS ORDERED: methylPREDNISolone Sodium Succinate 125 MG/2 ML SDV IVPUSH ONE (17:27)
[2023-08-10] MEDS ORDERED: Albuterol/Ipratropium 3.0-0.5 MG/3 ML Neb Soln NEB STA (17:27)
[2023-08-10 17:59] LABS: RED BLOOD CELL COUNT 4.39 x10(6)uL (3.90-5.90); WHITE BLOOD CELL COUNT,WBC 4.3 x10-3/uL (3.2-10.1)
[2023-08-10 18:03] LABS: BLOOD UREA NITROGEN,BUN 31 mg/dL (7-18); BUN/CREATININE RATIO 20.7 (9-20); CALCIUM 10.3 mg/dL (8.6-10.2); CARBON DIOXIDE,CO2 29 mmol/L (21-32); CHLORIDE,CL 97 mmol/L (100-110); CREATININE 1.5 mg/dL (0.70-1.30); ESTIMATED GFR 48 mL/min (>60); GLUCOSE RANDOM 94 mg/dL (80-116); POTASSIUM,K 4.5 mmol/L (3.5-5.3); SODIUM,NA 133 mmol/L (135-145)
[2023-08-10 18:09] LABS: BASE EXCESS VENOUS,POC 2 mmol/L (-2 - 3+); PCO2 VENOUS,POC 39 mmHg (41-51); PH VENOUS,POC 7.44 pH Units (7.32-7.43)
[2023-08-10 18:09] LABS: A/G RATIO 0.8; ALANINE AMINOTRANSFERASE,ALT 25 U/L (12-36); ALBUMIN 2.7 g/dL (3.2-4.6); ALKALINE PHOSPHATASE 133 IU/L (56-112); ASPARTATE AMNIOTRANSFERASE,AST 14 IU/L (5-25); BILIRUBIN TOTAL 0.5 mg/dL (0.1-1.3)
[2023-08-10 18:14] LABS: HEMATOCRIT 40.7 % (38.3-50.1); HEMOGLOBIN 13.6 g/dL (12.9-17.7); MEAN CORPUSCULAR HGB CONC 33.4 g/dL (28.7-35.3); MEAN CORPUSCULAR VOLUME 92.8 fL (80.8-98.7); MEAN PLATELET VOLUME 8.8 fL (6.7-11.0); PLATELET COUNT,PLT 262 x10(3)uL (117-477); RED CELL DISTRIBUTION WIDTH 15.4 % (12.4-15.0)
[2023-08-10 18:15] LABS: TROPONIN I 19.5 pg/mL (4.0-60.3)
[2023-08-10 18:24] LABS: BAND PERCENT MAN 6 % (0-6); LYMPHOCYTES PERCENT MAN 14 % (13-37); MONOCYTES PERCENT MAN 21 % (4-12); SEG NEUTROPHILS PERCENT MAN 59 % (46-82)
[2023-08-10] MEDS: Sodium Chloride 0.9% 10 ML Syringe FLUSH PRN (18:39)
[2023-08-10 19:09] LABS: CORONAVIRUS COVID-19 NAA POSITIVE (NEGATIVE); INFLUENZA A NAA NEGATIVE (NEGATIVE); INFLUENZA B NAA NEGATIVE (NEGATIVE)
[2023-08-10] MEDS ORDERED: Ondansetron 4 MG/2 ML SDV IV PRN (20:28)
[2023-08-10] MEDS ORDERED: Albuterol 0.083% 2.5 MG/3 ML Neb Soln NEB PRN (20:28)
[2023-08-10] MEDS ORDERED: Acetaminophen 325 MG Tab PO PRN (20:28)
[2023-08-10] MEDS ORDERED: Sennosides/Docusate Sodium 50-8.6 MG Tab PO PRN (20:28)
[2023-08-10] MEDS ORDERED: Enoxaparin 40 MG/0.4 ML Syringe SUBCUT SCH (20:30)
[2023-08-10] MEDS ORDERED: cefTRIAXone 1 GM Vial IVPUSH SCH (20:30)
[2023-08-10] MEDS ORDERED: Albuterol/Ipratropium 3.0-0.5 MG/3 ML Neb Soln NEB SCH (21:00)
[2023-08-10] MEDS: Sodium Chloride 0.9% 1,000 ML IV SCH (23:42)
[2023-08-10] MEDS ORDERED: cefTRIAXone 1 GM Vial IVPUSH ONE (23:45)
[2023-08-10] MEDS ORDERED: Albuterol/Ipratropium 3.0-0.5 MG/3 ML Neb Soln NEB ONE (23:45)
[2023-08-10] MEDS ORDERED: Enoxaparin 40 MG/0.4 ML Syringe SUBCUT ONE (23:45)
[2023-08-11] MEDS: methylPREDNISolone Sodium Succinate 125 MG/2 ML SDV IVPUSH SCH ×2 (02:23→09:16)
[2023-08-11] MEDS: Albuterol/Ipratropium 3.0-0.5 MG/3 ML Neb Soln NEB SCH ×4 (06:05→20:11)
[2023-08-11 06:57] LABS: HEMATOCRIT 36.5 % (38.3-50.1); HEMOGLOBIN 12.3 g/dL (12.9-17.7); MEAN CORPUSCULAR HEMOGLOBIN 31.4 pg (27.0-33.3); MEAN CORPUSCULAR HGB CONC 33.6 g/dL (28.7-35.3); MEAN CORPUSCULAR VOLUME 93.4 fL (80.8-98.7); MEAN PLATELET VOLUME 9.3 fL (6.7-11.0); PLATELET COUNT,PLT 201 x10(3)uL (117-477); RED BLOOD CELL COUNT 3.91 x10(6)uL (3.90-5.90); RED CELL DISTRIBUTION WIDTH 15.2 % (12.4-15.0)
[2023-08-11 07:08] LABS: A/G RATIO 0.6; ALANINE AMINOTRANSFERASE,ALT 25 U/L (12-36); ALBUMIN 2.1 g/dL (3.2-4.6); ALKALINE PHOSPHATASE 130 IU/L (56-112); ASPARTATE AMNIOTRANSFERASE,AST 31 IU/L (5-25); BILIRUBIN TOTAL 0.3 mg/dL (0.1-1.3); BLOOD UREA NITROGEN,BUN 30 mg/dL (7-18); CALCIUM 8.9 mg/dL (8.6-10.2); CARBON DIOXIDE,CO2 22 mmol/L (21-32); CHLORIDE,CL 103 mmol/L (100-110); EST CRCL DRUG DOSING (CG) 56.66 mL/min; ESTIMATED GFR 78 mL/min (>60); GLUCOSE RANDOM 243 mg/dL (80-116); POTASSIUM,K 4.4 mmol/L (3.5-5.3); PROTEIN TOTAL,TP 5.4 g/dL (6.0-8.0); SODIUM,NA 136 mmol/L (135-145)
[2023-08-11] MEDS: Sodium Chloride 0.9% 1,000 ML IV SCH (08:24)
[2023-08-11] MEDS ORDERED: Non-Formulary Medication 1 Each (Melatonin [Melatonin] 10 MG Tablet) PO PRN (08:33)
[2023-08-11] MEDS ORDERED: Ondansetron 4 MG Tab.DIS PO PRN (08:33)
[2023-08-11] MEDS ORDERED: Docusate Sodium 250 MG Cap PO PRN (08:33)
[2023-08-11] MEDS ORDERED: Acetaminophen 325 MG Tab PO PRN (08:33)
[2023-08-11] MEDS ORDERED: Non-Formulary Medication 1 Each (Fluticasone/Umeclidin/Vilanter [Trelegy Ellipta 100-62.5- INH SCH (09:00)
[2023-08-11] MEDS ORDERED: ACALABRUTINIB MALEATE 100 MG PO SCH (09:00)
[2023-08-11] MEDS ORDERED: Dexamethasone 4 MG/ML 5 ML MDV IVPUSH SCH (09:00)
[2023-08-11] MEDS: Aspirin 325 MG Tab.EC PO SCH (09:15)
[2023-08-11] MEDS: buPROPion 150 MG Tab.ER PO SCH (09:15)
[2023-08-11] MEDS: Finasteride 5 MG Tab PO SCH (09:15)
[2023-08-11] MEDS: Citalopram 20 MG Tab PO SCH (09:15)
[2023-08-11] MEDS: Tiotropium Bromide 4 GM Inhalation Spray (2.5mcg/1 dose; 10 doses) INH SCH (09:16)
[2023-08-11] MEDS: Formoterol/Mometasone 100-5 MCG 8.8 GM Inhaler IH SCH ×2 (09:16→20:10)
[2023-08-11] MEDS ORDERED: REMDESIVIR 200 MG in Sodium Chloride 0.9% 250 ML IV ONE (09:22)
[2023-08-11] MEDS ORDERED: Melatonin 3 MG Tab PO PRN (09:40)
[2023-08-11] MEDS: Doxycycline 100 MG Tab PO SCH ×2 (10:38→20:13)
[2023-08-11] MEDS ORDERED: Polyethylene Glycol 3350 Powder 17 GM Packet PO PRN (15:00)
[2023-08-11] MEDS: ACALABRUTINIB MALEATE 100 MG PO SCH (20:09)
[2023-08-11] MEDS: Enoxaparin 40 MG/0.4 ML Syringe SUBCUT SCH (20:12)
[2023-08-11] MEDS: atorvaSTATin 40 MG Tab PO SCH (20:13)
[2023-08-11] MEDS: Tamsulosin 0.4 MG Cap.ER PO SCH (20:13)
[2023-08-11] MEDS: OLANZapine 2.5 MG Tab PO SCH (20:13)
[2023-08-11] MEDS ORDERED: cefTRIAXone 1 GM Vial IVPUSH SCH (21:00)
[2023-08-12 07:01] LABS: HEMATOCRIT 36.4 % (38.3-50.1); HEMOGLOBIN 11.9 g/dL (12.9-17.7); MEAN CORPUSCULAR HEMOGLOBIN 30.7 pg (27.0-33.3); MEAN CORPUSCULAR HGB CONC 32.6 g/dL (28.7-35.3); MEAN CORPUSCULAR VOLUME 94.1 fL (80.8-98.7); MEAN PLATELET VOLUME 9.1 fL (6.7-11.0); PLATELET COUNT,PLT 229 x10(3)uL (117-477); RED BLOOD CELL COUNT 3.87 x10(6)uL (3.90-5.90); RED CELL DISTRIBUTION WIDTH 15.5 % (12.4-15.0); WHITE BLOOD CELL COUNT,WBC 7.1 x10-3/uL (3.2-10.1)
[2023-08-12 07:15] LABS: A/G RATIO 0.8; ALANINE AMINOTRANSFERASE,ALT 27 U/L (12-36); ALBUMIN 2.2 g/dL (3.2-4.6); ALKALINE PHOSPHATASE 106 IU/L (56-112); ASPARTATE AMNIOTRANSFERASE,AST 19 IU/L (5-25); BILIRUBIN TOTAL 0.2 mg/dL (0.1-1.3); BLOOD UREA NITROGEN,BUN 22 mg/dL (7-18); BUN/CREATININE RATIO 24.4 (9-20); CALCIUM 9.2 mg/dL (8.6-10.2); CARBON DIOXIDE,CO2 30 mmol/L (21-32); CHLORIDE,CL 110 mmol/L (100-110); CREATININE 0.9 mg/dL (0.70-1.30); EST CRCL DRUG DOSING (CG) 62.96 mL/min; ESTIMATED GFR 89 mL/min (>60); GLUCOSE RANDOM 125 mg/dL (80-116); POTASSIUM,K 4.8 mmol/L (3.5-5.3); PROTEIN TOTAL,TP 5.1 g/dL (6.0-8.0); SODIUM,NA 145 mmol/L (135-145)
[2023-08-12] MEDS: Albuterol/Ipratropium 3.0-0.5 MG/3 ML Neb Soln NEB SCH ×4 (08:08→20:12)
[2023-08-12] MEDS: Sodium Chloride 0.9% 10 ML Syringe FLUSH PRN ×2 (08:10→08:25)
[2023-08-12] MEDS: Aspirin 325 MG Tab.EC PO SCH (08:12)
[2023-08-12] MEDS: buPROPion 150 MG Tab.ER PO SCH (08:13)
[2023-08-12] MEDS: ACALABRUTINIB MALEATE 100 MG PO SCH ×2 (08:15→20:08)
[2023-08-12] MEDS: Citalopram 20 MG Tab PO SCH (08:16)
[2023-08-12] MEDS: Dexamethasone 4 MG/ML SDV IVPUSH SCH (08:17)
[2023-08-12] MEDS: Formoterol/Mometasone 100-5 MCG 8.8 GM Inhaler IH SCH ×2 (08:18→20:11)
[2023-08-12] MEDS: Doxycycline 100 MG Tab PO SCH ×2 (08:18→20:13)
[2023-08-12] MEDS: Tiotropium Bromide 4 GM Inhalation Spray (2.5mcg/1 dose; 10 doses) INH SCH (08:19)
[2023-08-12] MEDS: Finasteride 5 MG Tab PO SCH (08:19)
[2023-08-12] MEDS: REMDESIVIR 100 MG in Sodium Chloride 0.9% 100 ML IV SCH (10:27)
[2023-08-12 10:48] LABS: BAND PERCENT MAN 12 % (0-6); LYMPHOCYTES PERCENT MAN 8 % (13-37); MONOCYTES PERCENT MAN 4 % (4-12); MYELOCYTE PERCENT MAN 7 % (0-0)
[2023-08-12 10:52] LABS: BAND PERCENT MAN 4 % (0-6)
[2023-08-12 10:53] LABS: LYMPHOCYTES PERCENT MAN 12 % (13-37); METAMYELOCYTE PERCENT MAN 1 % (0-0); MONOCYTES PERCENT MAN 20 % (4-12)
[2023-08-12 10:54] LABS: SEG NEUTROPHILS PERCENT MAN 63 % (46-82)
[2023-08-12 11:14] LABS: SEG NEUTROPHILS PERCENT MAN 69 % (46-82)
[2023-08-12] MEDS: Enoxaparin 40 MG/0.4 ML Syringe SUBCUT SCH (20:12)
[2023-08-12] MEDS: atorvaSTATin 40 MG Tab PO SCH (20:12)
[2023-08-12] MEDS: Tamsulosin 0.4 MG Cap.ER PO SCH (20:12)
[2023-08-12] MEDS: OLANZapine 2.5 MG Tab PO SCH (20:13)
[2023-08-13 07:11] LABS: HEMATOCRIT 34.4 % (38.3-50.1); HEMOGLOBIN 11.5 g/dL (12.9-17.7); MEAN CORPUSCULAR HEMOGLOBIN 31.4 pg (27.0-33.3); MEAN CORPUSCULAR HGB CONC 33.5 g/dL (28.7-35.3); MEAN CORPUSCULAR VOLUME 93.6 fL (80.8-98.7); MEAN PLATELET VOLUME 9.1 fL (6.7-11.0); PLATELET COUNT,PLT 207 x10(3)uL (117-477); RED BLOOD CELL COUNT 3.68 x10(6)uL (3.90-5.90); RED CELL DISTRIBUTION WIDTH 15.7 % (12.4-15.0)
[2023-08-13 07:23] LABS: A/G RATIO 0.7; ALANINE AMINOTRANSFERASE,ALT 24 U/L (12-36); ALBUMIN 1.9 g/dL (3.2-4.6); ALKALINE PHOSPHATASE 98 IU/L (56-112); ASPARTATE AMNIOTRANSFERASE,AST 20 IU/L (5-25); BILIRUBIN TOTAL 0.2 mg/dL (0.1-1.3); BLOOD UREA NITROGEN,BUN 20 mg/dL (7-18); CALCIUM 8.8 mg/dL (8.6-10.2); CARBON DIOXIDE,CO2 28 mmol/L (21-32); CHLORIDE,CL 109 mmol/L (100-110); CREATININE 0.8 mg/dL (0.70-1.30); EST CRCL DRUG DOSING (CG) 70.83 mL/min; ESTIMATED GFR 92 mL/min (>60); GLUCOSE RANDOM 90 mg/dL (80-116); PROTEIN TOTAL,TP 4.5 g/dL (6.0-8.0); SODIUM,NA 142 mmol/L (135-145)
[2023-08-13 07:53] LABS: BAND PERCENT MAN 6 % (0-6); LYMPHOCYTES PERCENT MAN 8 % (13-37); MONOCYTES PERCENT MAN 20 % (4-12); SEG NEUTROPHILS PERCENT MAN 66 % (46-82)
[2023-08-13] MEDS: Albuterol/Ipratropium 3.0-0.5 MG/3 ML Neb Soln NEB SCH ×2 (08:15→11:15)
[2023-08-13] MEDS: Doxycycline 100 MG Tab PO SCH (08:39)
[2023-08-13] MEDS: Aspirin 325 MG Tab.EC PO SCH (08:39)
[2023-08-13] MEDS: ACALABRUTINIB MALEATE 100 MG PO SCH (08:41)
[2023-08-13] MEDS: Dexamethasone 4 MG/ML SDV IVPUSH SCH (08:41)
[2023-08-13] MEDS: Citalopram 20 MG Tab PO SCH (08:42)
[2023-08-13] MEDS: Tiotropium Bromide 4 GM Inhalation Spray (2.5mcg/1 dose; 10 doses) INH SCH (08:43)
[2023-08-13] MEDS: Finasteride 5 MG Tab PO SCH (08:43)
[2023-08-13] MEDS: Formoterol/Mometasone 100-5 MCG 8.8 GM Inhaler IH SCH (08:43)
[2023-08-13] MEDS: buPROPion 150 MG Tab.ER PO SCH (08:44)
[2023-08-13] MEDS: REMDESIVIR 100 MG in Sodium Chloride 0.9% 100 ML IV SCH (10:00)
== END 2023-08-13 12:20 | disposition home or self-care (01) | DRG 177 ==
LOC: FB.ED 16:40 → FB.MS 21:20
PROVIDERS: ADMIT Emergency Medicine; ATTEND Family Medicine
PROC: XW033E5 Introduction of Remdesivir Anti-infective into Peripheral Vein, Percutaneous Approach, New Technology Group 5 (ICD-10-PCS; principal; 2023-08-10)
PROC: 3E0333Z Introduction of Anti-inflammatory into Peripheral Vein, Percutaneous Approach (ICD-10-PCS; 2023-08-10)
DX: U07.1 COVID-19 (principal); J12.82 Pneumonia due to coronavirus disease 2019; J96.01 Acute respiratory failure with hypoxia; C85.90 Non-Hodgkin lymphoma, unspecified, unspecified site; J44.1 Chronic obstructive pulmonary disease with (acute) exacerbation; N17.9 Acute kidney failure, unspecified; J44.0 Chronic obstructive pulmonary disease with (acute) lower respiratory infection; E87.1 Hypo-osmolality and hyponatremia; I10 Essential (primary) hypertension; F32.A Depression, unspecified; E86.0 Dehydration; E88.09 Other disorders of plasma-protein metabolism, not elsewhere classified; Z79.82 Long term (current) use of aspirin; Z90.49 Acquired absence of other specified parts of digestive tract; Z86.73 Personal history of transient ischemic attack (TIA), and cerebral infarction without residual deficits; Z87.891 Personal history of nicotine dependence; Z79.899 Other long term (current) drug therapy
CPT/HCPCS: 0240U; 36415; 71045; 80053; 83880; 84484; 85025; 93005; 93010; 94150; 94640; 96374; 99222; 99232; 99239; 99285; 99285-25; A9270-GY; J0696; J1100; J1650; J2930; J3490; J7030; J7050; J7620

== ENCOUNTER 2023-08-20 13:23 | Emergency (ER) | payer MEDICARE ==
[2023-08-20] MEDS ORDERED: methylPREDNISolone Sodium Succinate 125 MG/2 ML SDV IVPUSH ONE (13:47)
[2023-08-20] MEDS ORDERED: Sodium Chloride 0.9% 10 ML Syringe FLUSH PRN (13:47)
[2023-08-20] MEDS ORDERED: Albuterol/Ipratropium 3.0-0.5 MG/3 ML Neb Soln NEB ONE (13:47)
[2023-08-20] MEDS ORDERED: Sodium Chloride 0.9% 1,000 ML IV SCH (14:00)
[2023-08-20 14:16] LABS: HEMATOCRIT 29.5 % (38.3-50.1); MEAN CORPUSCULAR HEMOGLOBIN 30.9 pg (27.0-33.3); MEAN CORPUSCULAR VOLUME 90.9 fL (80.8-98.7); MEAN PLATELET VOLUME 8.7 fL (6.7-11.0); PLATELET COUNT,PLT 129 x10(3)uL (117-477); RED BLOOD CELL COUNT 3.24 x10(6)uL (3.90-5.90); RED CELL DISTRIBUTION WIDTH 15.8 % (12.4-15.0); WHITE BLOOD CELL COUNT,WBC 3.6 x10-3/uL (3.2-10.1)
[2023-08-20 14:20] LABS: BLOOD UREA NITROGEN,BUN 31 mg/dL (7-18); BUN/CREATININE RATIO 23.8 (9-20); CARBON DIOXIDE,CO2 24 mmol/L (21-32); CHLORIDE,CL 96 mmol/L (100-110); CREATININE 1.3 mg/dL (0.70-1.30); EST CRCL DRUG DOSING (CG) 48.07 mL/min; ESTIMATED GFR 57 mL/min (>60); GLUCOSE RANDOM 98 mg/dL (80-116); SODIUM,NA 126 mmol/L (135-145)
[2023-08-20 14:26] LABS: A/G RATIO 0.6; ALANINE AMINOTRANSFERASE,ALT 38 U/L (12-36); ALBUMIN 1.8 g/dL (3.2-4.6); ALKALINE PHOSPHATASE 88 IU/L (56-112); ASPARTATE AMNIOTRANSFERASE,AST 73 IU/L (5-25); BILIRUBIN TOTAL 0.8 mg/dL (0.1-1.3); PROTEIN TOTAL,TP 5.1 g/dL (6.0-8.0)
[2023-08-20 14:27] LABS: INFLUENZA A NAA NEGATIVE (NEGATIVE); INFLUENZA B NAA NEGATIVE (NEGATIVE)
[2023-08-20 14:28] LABS: CORONAVIRUS COVID-19 NAA POSITIVE (NEGATIVE); INR 0.99 (1.00-1.24); PROTHROMBIN TIME 10.2 sec (9.0-11.1); PTT,PARTIAL THROMBOPLSTIN TIME 32.9 SECONDS (24.4-33.2)
[2023-08-20 14:35] LABS: TROPONIN I 146.6 pg/mL (4.0-60.3)
[2023-08-20 14:36] LABS: BAND PERCENT MAN 4 % (0-6); LYMPHOCYTES PERCENT MAN 5 % (13-37); MONOCYTES PERCENT MAN 14 % (4-12); SEG NEUTROPHILS PERCENT MAN 77 % (46-82)
[2023-08-20 14:54] LABS: LACTIC ACID 0.7 mmol/L (0.4-2.0)
[2023-08-20] MEDS ORDERED: Azithromycin 500 MG in Sodium Chloride 0.9% 250 ML IV ONE (17:11)
[2023-08-20] MEDS ORDERED: cefTRIAXone 1 GM Vial IVPUSH STA (17:11)
[2023-08-20] MEDS ORDERED: Iopamidol 755 Mg/ML 100 ML Bottle IV ONE (18:15)
[2023-08-20 18:19] LABS: BILIRUBIN,URINE NEGATIVE (NEGATIVE); GLUCOSE,URINE NORMAL (NORMAL); KETONES,URINE NEGATIVE (NEGATIVE); LEUKOCYTE ESTERASE,URINE SMALL (NEGATIVE); NITRITE,URINE NEGATIVE (NEGATIVE); OCCULT BLOOD,URINE MODERATE (NEGATIVE); PROTEIN,URINE NEGATIVE (NEGATIVE); UROBILINOGEN,URINE NORMAL (NEGATIVE)
[2023-08-20 18:23] LABS: APPEARANCE,URINE SLIGHTLY CLOUDY (CLEAR); BACTERIA,URINE MODERATE (NS); COLOR,URINE YELLOW (YELLOW); RBC,URINE 0-5 (0-5); SQUAMOUS EPITHELIAL CELLS,UR FEW (NS,R,O); YEAST,URINE MANY (NS)
== END 2023-08-20 19:15 ==
LOC: FB.ED 13:23
DX: U07.1 COVID-19 (principal); J44.1 Chronic obstructive pulmonary disease with (acute) exacerbation; I20.0 Unstable angina; J18.9 Pneumonia, unspecified organism; R04.2 Hemoptysis; D64.9 Anemia, unspecified; Z86.73 Personal history of transient ischemic attack (TIA), and cerebral infarction without residual deficits; Z87.891 Personal history of nicotine dependence; Z79.899 Other long term (current) drug therapy
CPT/HCPCS: 0240U; 36415; 70450; 71045; 71275; 80053; 81001; 83605; 83880; 84484; 85025; 85610; 85730; 87040; 87086; 87088; 93005; 93010; 94640; 96361; 96365; 96375; 99285; J0456; J0696; J2930; J7030; J7050; Q9967; 87186; J7620